=== PATIENT | male | born 1965 | race African-American/Black ===

== ENCOUNTER 2019-03-03 14:43 | Inpatient (IN) | payer OTHER ==
[2019-03-03] MEDS: LATANOPROST 0.005% OPHTH SOLN 2.5ML BOTTLE OU SCH ×2 (10:40→22:27)
[2019-03-03 15:12] VITALS: BMI 28.0
--- NOTE | 2019-03-03 16:18 | HP ---
CIWA Score Nausea/Vomitin-No Nausea/No Vomiting Muscle Tremors: 4-Moderate,w/Arms Extend Anxiety: 3 Agitation: 3 Paroxysmal Sweats: 3 (Increased facial moisture) Orientation: 0-Oriented Tacttile Disturbances: 0-None Auditory Disturbances: 0-None Visual Disturbances: 0-None Headache: 0-None Present (FREDRICK: 0.024) CIWA-Ar Total Score: 13 - Admission Criteria OASAS Guidelines: Admission for Medically Managed Detox: Requires at least one of the followin. CIWA greater than 12 2. Seizures within the past 24 hours 3. Delirium tremens within the past 24 hours 4. Hallucinations within the past 24 hours 5. Acute intervention needed for co occurring medical disorder 6. Acute intervention needed for co occurring psychiatric disorder 7. Severe withdrawal that cannot be handled at a lower level of care (continued vomiting, continued diarrhea, abnormal vital signs) requiring intravenous medication and/or fluids 8. Patient presents the following: CIWA greater than 12 Admission Criteria Met: Admission criteria met Admitting History and Physical - Smoking History Smoking history: Never smoked Have you smoked in the past 12 months: No If you are a former smoker, when did you quit?: 11/19 - Alcohol/Substance Use Hx Alcohol Use: Yes Admission ROS [facility] Chief Complaint: "Here to regain custody over my life. To stop using alcohol and cocaine" Allergies/Adverse Reactions: Allergies Allergy/AdvReac Type Severity Reaction Status Date / Time No Known Allergies Allergy Verified 03/03/19 15:01 History of Present Illness: 53 yo presents w/ alcohol withdrawal symptoms seeking detox. UTox: + ALEKSANDER FREDRICK: 0.0 Denies hx seizures, blackouts or overdoses. Hx falls r/t intoxication. Last fall 6 months ago. Alcohol use began at age 21. Currently drinks 12 - 12 oz beers and 1/2 liter (1 pt)/day. Has been drinking current amount x past 2 years. Last drink @ 12 mn. Crack/cocaine use began at age 38. Currently smokes $50 3-4x/wk. Nicotine use began 30 days ago. Just has "3-4 pulls" PMHx: PPD+; Glaucoma. MHHx: No past MH diagnosis. States was prescribed Xanax for anxiety issue. Denies thoughts of harming self or others. SHx:Domiciled. Employed. Denies legal issues. 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 Last alprazolam prescription states 02/26/19: 30 day # 90- but patient states didn't cloth picker and is no longer taking. Last oxycodone prescription was 01/18/19: 30 day #90 See printout. Exam Limitations: No Limitations - Ebola screening Have you traveled outside of the country in the last 21 days: No (N) Have you had contact with anyone from an Ebola affected area: No Have you been sick,other than usual withdrawal symptoms: No Do you have a fever: No - Review of Systems Constitutional: Diaphoresis, Changes in sleep (DFifficulty falling and staying asleep) EENT: reports: Dental Problems (Dentures), Other (Glaucoma - on eye gtts) Respiratory: reports: No Symptoms reported Cardiac: reports: No Symptoms Reported GI: reports: Indigestion (Heart burn - was taking prilosec) : reports: No Symptoms Reported Musculoskeletal: reports: Joint Pain ((R) wrist injury 6 months ago.) Integumentary: reports: No Symptoms Reported Neuro: reports: Tremors Endocrine: reports: Increased Thirst Hematology: reports: No Symptoms Reported Psychiatric: reports: Orientated x3, Anxious Patient History - Patient Medical History Hx Anemia: No Hx Asthma: No Hx Chronic Obstructive Pulmonary Disease (COPD): No Hx Cancer: No Hx Cardiac Disorders: No Hx Congestive Heart Failure: No Hx Hypertension: No Hx Hypercholesterolemia: No Hx Pacemaker: No HX Cerebrovascular Accident: No Hx Seizures: No Hx Diabetes: No Hx Gastrointestinal Disorders: No Hx Liver Disease: No Hx Genitourinary Disorders: No Hx Sexually Transmitted Disorders: No Hx Renal Disease (ESRD): No Hx Thyroid Disease: No Hx Human Immunodeficiency Virus (HIV): No Hx Depression: Yes (no med) Hx Suicide Attempt: No Hx Schizophrenia: No - Patient Surgical History Past Surgical History: Yes Hx Appendectomy: Yes (at age of 75 years old) Other Surgical History: s/p surgery for gswof right thigh - PPD History Previous Implant?: No (Hx PPD+ as a child. States rx'd w/ [facility]H and B-6) Documented Results: Positive w/o proof Implanted On Prior [facility] Admission?: No PPD to be Administered?: No - Smoking Cessation Smoking history: Current some day smoker Have you smoked in the past 12 months: Yes Aproximately how many cigarettes per day: 0.5 Hx Chewing Tobacco Use: No Initiated information on smoking cessation: Yes 'Breaking Loose' booklet given: 03/03/19 - Substance & Tx. History Hx Alcohol Use: Yes Hx Substance Use: Yes Substance Use Type: Alcohol, Cocaine Hx Substance Use Treatment: Yes (detox, rehab) - Substances abused Alcohol Substance route: Oral Frequency: Daily Amount used: 1/5th of gin 6(12oz beers) Age of first use: 21 Date of last use: 03/03/19 Crack Substance route: Smoking Frequency: 3-6 times per week Amount used: 50$/day Age of first use: 38 Date of last use: 03/03/19 Cocaine Substance route: Smoking Frequency: 3-6 times per week Amount used: $50/day Age of first use: 38 Date of last use: 03/03/19 Admission Physical Exam [facility] - Vital Signs Vital Signs: Vital Signs - 24 hr 03/03/19 15:01 Temperature 98.4 F Pulse Rate 68 Respiratory 14 Rate - Physical General Appearance: Yes: Nourished, Mild Distress, Tremorous, Sweating ( Increased facial moisture), Anxious HEENTM: Yes: EOMI, Hearing grossly Normal, Normocephalic, REINA, Pharynx Normal Respiratory: Yes: Lungs Clear (PULSE OX = 98 %), Normal Breath Sounds, No Respiratory Distress Neck: Yes: No masses,lesions,Nodules, Supple Breast: Yes: Breast Exam Deferred Cardiology: Yes: Regular Rhythm, Regular Rate, S1, S2 Abdominal: Yes: Non Tender, Flat, Soft, Increased Bowel Sounds Genitourinary: Yes: Within Normal Limits Back: Yes: Within Normal Limits Musculoskeletal: Yes: full range of Motion, Gait Steady Extremities: Yes: Normal Capillary Refill (PERIPHERAL PULSES +), Tremors Neurological: Yes: computer programmer II-XII NML intact, Fully Oriented, Alert, Motor Strength 5/5 Integumentary: Yes: Normal Color, Warm, Diaphoresis (Increased facial moisture) Lymphatic: Yes: Within Normal Limits - Diagnostic (1) Alcohol dependence with withdrawal, uncomplicated Current Visit: Yes Status: Acute (2) Glaucoma Current Visit: Yes Status: Chronic Qualifiers: Glaucoma type: unspecified Laterality: bilateral Qualified Code(s): H40.9 - Unspecified glaucoma (3) Nicotine abuse Current Visit: Yes Status: Acute (4) Acid reflux Current Visit: Yes Status: Chronic Qualifiers: Esophagitis presence: without esophagitis Qualified Code(s): K21.9 - Gastro -esophageal reflux disease without esophagitis (5) Cocaine dependence Current Visit: Yes Status: Chronic (6) History of positive PPD Current Visit: Yes Status: Chronic Cleared for Admission [facility] - Detox or Rehab S Level of Care: Medically Managed Detox Regimen/Protocol: Valium (ATIVAN ) Claeared for Rehab Admission: No Breathalyzer - Breathalyzer Breathalyzer: 0.024 Urine Drug Screen - Test Device Lot number: [id number] Expiration date: 10/18/20 - Control Is test valid?: Yes - Results Drug screen NEGATIVE: No Urine drug screen results: ALEKSANDER-Cocaine Inpatient Rehab Admission - Rehab Decision to Admit Inpatient rehab admission?: No
[2019-03-03] MEDS ORDERED: MAGNESIUM HYDROX 2400MG/30ML ORAL SUSPENSION 30 ML CUP PO PRN (16:45)
[2019-03-03] MEDS ORDERED: MAGNESIUM CITRATE 300 ML BOTTLE PO PRN (16:45)
[2019-03-03] MEDS ORDERED: ACETAMINOPHEN 325 MG TABLET (FP) PO PRN ×2 (16:45)
[2019-03-03] MEDS ORDERED: MENTHOL/PHENOL 1 EACH UD MM PRN (16:45)
[2019-03-03] MEDS ORDERED: MAG HYDROX/AL HYDROX/SIMETH 30 ML UNIT-DOSE CUP PO PRN (16:45)
[2019-03-03] MEDS ORDERED: NICOTINE POLACRILEX 2 MG GUM BUC PRN (16:45)
[2019-03-03] MEDS ORDERED: IBUPROFEN 400 MG TABLET (FP) PO PRN (16:45)
[2019-03-03] MEDS ORDERED: BISMUTH SUBSALICYLATE 524 MG/30 ML UD PO PRN (16:45)
[2019-03-03] MEDS: LORazepam 1 MG TABLET PO PRN (17:58)
[2019-03-03] MEDS ORDERED: PATIENT'S OWN MEDICATION (NON-FORMULARY) (Dorzolamide Hcl/Timolol Maleat [Cosopt Eye Drops OU SCH (22:00)
[2019-03-03] MEDS: THIAMINE HCL 100 MG TABLET (FP) PO SCH (22:24)
[2019-03-03] MEDS: MELATONIN 5 MG TABLETS PO PRN (22:24)
[2019-03-03] MEDS: PANTOPRAZOLE 20 MG TABLET PO SCH (22:24)
[2019-03-03] MEDS: LORazepam 2 MG TABLET PO SCH (22:24)
[2019-03-04] MEDS: LORazepam 2 MG TABLET PO SCH ×4 (06:59→22:28)
[2019-03-04] MEDS ORDERED: PNEUMOC 13-VAL CONJ-DIP CRM/PF 0.5 ML DISP.SYRIN IM ONE (10:00)
--- NOTE | 2019-03-04 10:15 | EKG ---
Test Reason : Blood Pressure : / mmHG Vent. Rate : 065 BPM Atrial Rate : 065 BPM P-R Int : 148 ms QRS Dur : 074 ms QT Int : 372 ms P-R-T Axes : 048 -22 015 degrees QTc Int : 386 ms NORMAL SINUS RHYTHM NORMAL ECG NO PREVIOUS ECGS AVAILABLE Confirmed by NICOLE HEREDIA MD ([id number]) on 03/04/2019 10:15:23 AM Referred By: Delbert Hernández Confirmed By:NICLOE HEREDIA MD
[2019-03-04] MEDS: PRENATAL VITAMINS W/ FOLIC ACID TABLET (FP) PO SCH (10:32)
[2019-03-04] MEDS: PANTOPRAZOLE 20 MG TABLET PO SCH ×2 (10:32→22:28)
[2019-03-04] MEDS ORDERED: hydrOXYzine PAMOATE 50 MG CAPSULE (FP) PO PRN (10:45)
[2019-03-04 11:05] LABS: HEMATOCRIT 45.9 % (35.4-49); HEMOGLOBIN 14.7 GM/dL (11.7-16.9); MCH 29.7 pg (25.7-33.7); MCHC 32.1 g/dl (32.0-35.9); MEAN CELL VOLUME 92.7 fl (80-96); MEAN PLT VOLUME 9.8 fl (7.5-11.1); PLATELET COUNT 223 K/MM3 (134-434); RBC 4.96 M/mm3 (4.00-5.60); RDW 13.1 % (11.9-15.9); WHITE BLOOD COUNT 7.1 K/mm3 (4.0-10.0)
[2019-03-04 11:13] LABS: ALBUMIN 3.9 g/dl (3.4-5.0); BILIRUBIN,TOTAL 0.6 mg/dL (0.2-1); BLOOD UREA NITROGEN 11.9 mg/dL (7-18); CREATININE 1.4 mg/dL (0.55-1.3); POTASSIUM 3.9 mmol/L (3.5-5.1); TOT PROT 7.4 g/dl (6.4-8.2)
[2019-03-04 11:23] LABS: URINE APPEARANCE CLEAR; URINE BILIRUBIN NEGATIVE (NEGATIVE); URINE COLOR YELLOW; URINE GLUCOSE (UA) NEGATIVE (NEGATIVE); URINE KETONE NEGATIVE (NEGATIVE); URINE LEUK ESTERASE NEGATIVE (NEGATIVE); URINE NITRITE NEGATIVE (NEGATIVE); URINE PROTEIN NEGATIVE (NEGATIVE); URINE UROBILINOGEN 0.2 mg/dL (0.2-1.0)
--- NOTE | 2019-03-04 12:32 | PN ---
[facility] CIWA - CIWA Score Nausea/Vomitin-Mild Nausea/No Vomiting Muscle Tremors: 2 Anxiety: 2 Agitation: 2 Paroxysmal Sweats: 2 Orientation: 0-Oriented Tacttile Disturbances: 0-None Auditory Disturbances: 0-None Visual Disturbances: 0-None Headache: 0-None Present CIWA-Ar Total Score: 9 S Progress Note (SOAP) Subjective: Sweat, chills, tremor, interrupted sleep Objective: 03/04/19 12:29 Last Vital Signs Temp Pulse Resp BP Pulse Ox 97.7 F 73 18 126/70 03/04/19 09:17 03/04/19 09:17 03/04/19 09:17 03/04/19 09:17 Laboratory Tests 03/04/19 03/04/19 03/04/19 08:00 08:00 08:20 WBC 7.1 RBC 4.96 Hgb 14.7 Hct 45.9 MCV 92.7 MCH 29.7 MCHC 32.1 RDW 13.1 Plt Count 223 MPV 9.8 Sodium 139 Potassium 3.9 Chloride 105 Carbon Dioxide 27 Anion Gap 8 BUN 11.9 Creatinine 1.4 H Est GFR (CKD-EPI)AfAm 65.09 Est GFR (CKD-EPI)NonAf 56.16 Random Glucose 88 Calcium 9.0 Total Bilirubin 0.6 AST 31 ALT 50 Alkaline Phosphatase 110 Total Protein 7.4 Albumin 3.9 Urine Color Yellow Urine Appearance Clear Urine pH 5.0 Ur Specific [place] 1.024 Urine Protein Negative Urine Glucose (UA) Negative Urine Ketones Negative Urine Blood Negative Urine Nitrite Negative Urine Bilirubin Negative Urine Urobilinogen 0.2 Ur Leukocyte Esterase Negative Labs reviewed: serum creatinine 1.4 (mildly elevated) Assessment: 03/04/19 12:30 Withdrawal sxs Prerenal azotemia noted Plan: Continue detox Encouraged PO water intake Vistaril prn ordered for w/d sxs as per patient's request Prerenal azotemia: encouraged to drink more water, repeat BMP
[2019-03-04] MEDS ORDERED: FLU VACCINE QUAD 60 MCG/0.5 ML (MDV 19-20) IM ONE (13:00)
[2019-03-04] MEDS: THIAMINE HCL 100 MG TABLET (FP) PO SCH (22:28)
[2019-03-04] MEDS: MELATONIN 5 MG TABLETS PO PRN (22:29)
[2019-03-04] MEDS: TIMOLOL 0.5% OPHTHALMIC SOL 5 ML BOTTLE OU SCH (23:04)
[2019-03-04] MEDS: LATANOPROST 0.005% OPHTH SOLN 2.5ML BOTTLE OU SCH (23:04)
[2019-03-04] MEDS: DORZOLAMIDE 2% HCL OPHTHALMIC SOLUTION 10 ML BOTTLE OU SCH (23:05)
[2019-03-05] MEDS: LORazepam 1 MG TABLET PO SCH ×4 (05:18→22:05)
--- NOTE | 2019-03-05 09:34 | PN ---
S CIWA - CIWA Score Nausea/Vomitin-Mild Nausea/No Vomiting Muscle Tremors: 1-None Visible, but Jack Anxiety: 2 Agitation: 2 Paroxysmal Sweats: No Perspiration Orientation: 0-Oriented Tacttile Disturbances: 1-Very Mild Itch/Numbness Auditory Disturbances: 0-None Visual Disturbances: 0-None Headache: 1-Very Mild CIWA-Ar Total Score: 8 [facility] Progress Note (SOAP) Subjective: alert,irritable,anxious,interrupted sleep,pain in the body, Objective: 03/05/19 09:32 Vital Signs Temperature 97.5 F L 03/05/19 09:21 Pulse Rate 66 03/05/19 09:21 Respiratory Rate 18 03/05/19 09:21 Blood Pressure 106/68 03/05/19 09:21 O2 Sat by Pulse Oximetry (%) repeat bmp pending Assessment: 03/05/19 09:33 withdrawal symptom Plan: continue detox ativan regimen,encourage oral fluid
[2019-03-05] MEDS: TIMOLOL 0.5% OPHTHALMIC SOL 5 ML BOTTLE OU SCH (10:17)
[2019-03-05] MEDS: DORZOLAMIDE 2% HCL OPHTHALMIC SOLUTION 10 ML BOTTLE OU SCH ×3 (10:18→22:06)
[2019-03-05] MEDS: PANTOPRAZOLE 20 MG TABLET PO SCH ×2 (10:20→22:05)
[2019-03-05] MEDS: PRENATAL VITAMINS W/ FOLIC ACID TABLET (FP) PO SCH (10:20)
[2019-03-05] MEDS ORDERED: PNEUMOCOCCAL 23 VACCINE 0.5 ML VIAL IM ONE (12:00)
[2019-03-05 12:49] LABS: CALCIUM 9.3 mg/dL (8.5-10.1); CREATININE 1.2 mg/dL (0.55-1.3); POTASSIUM 4.1 mmol/L (3.5-5.1)
[2019-03-05] MEDS: LORazepam 1 MG TABLET PO PRN ×2 (14:21→19:50)
[2019-03-05] MEDS: TIMOLOL 0.25% OPHTHALMIC SOL 5 ML BOTTLE OU SCH ×2 (15:16→22:06)
[2019-03-05] MEDS: THIAMINE HCL 100 MG TABLET (FP) PO SCH (22:05)
[2019-03-05] MEDS: LATANOPROST 0.005% OPHTH SOLN 2.5ML BOTTLE OU SCH (22:07)
[2019-03-06] MEDS ORDERED: LORazepam 0.5 MG TABLET PO PRN
[2019-03-06] MEDS: LORazepam 0.5 MG TABLET PO SCH ×4 (05:28→22:48)
[2019-03-06] MEDS: DORZOLAMIDE 2% HCL OPHTHALMIC SOLUTION 10 ML BOTTLE OU SCH ×3 (05:43→21:44)
[2019-03-06] MEDS: TIMOLOL 0.25% OPHTHALMIC SOL 5 ML BOTTLE OU SCH ×3 (05:44→21:43)
--- NOTE | 2019-03-06 09:41 | PN ---
S CIWA - CIWA Score Nausea/Vomitin-Mild Nausea/No Vomiting Muscle Tremors: 1-None Visible, but [place] Anxiety: 2 Agitation: 2 Paroxysmal Sweats: No Perspiration Orientation: 0-Oriented Tacttile Disturbances: 1-Very Mild Itch/Numbness Auditory Disturbances: 0-None Visual Disturbances: 0-None Headache: 1-Very Mild CIWA-Ar Total Score: 8 [facility] Progress Note (SOAP) Subjective: alert,irritable,anxious,interrupted sleep, Objective: 03/06/19 09:40 Vital Signs Temperature 97.6 F 03/06/19 09:21 Pulse Rate 68 03/06/19 09:21 Respiratory Rate 18 03/06/19 09:21 Blood Pressure 134/65 03/06/19 09:21 O2 Sat by Pulse Oximetry (%) Assessment: 03/06/19 09:40 withdrawal symptom Plan: continue detox ativan regimen,psychiatric evaluation for anxiety,depression and insomnia,discharge in am
[2019-03-06] MEDS: PANTOPRAZOLE 20 MG TABLET PO SCH ×2 (10:16→21:40)
[2019-03-06] MEDS: PRENATAL VITAMINS W/ FOLIC ACID TABLET (FP) PO SCH (10:16)
--- NOTE | 2019-03-06 15:14 | CONSULT ---
[facility] Psychiatric Consult - Data Date of interview: 03/06/19 Admission source: [facility] Identifying data: Readmission to [facility] for this 53 y/o AA male self- referred for detoxification. CARSON issues : alcohol, cocaine. Interviewed at [address] [place] [address]. Patient is , father of three, domiciled and currently employed. Substance Abuse History: Discussed with patient. Details in current [facility] report as follows : Smoking history: Current some day smoker. Have you smoked in the past 12 months: Yes. Aproximately how many cigarettes per day: 0.5. Hx Chewing Tobacco Use: No. Initiated information on smoking cessation: Yes. ' Breaking Loose' booklet given: 03/03/19. - Substance & Tx. History. Hx Alcohol Use: Yes. Hx Substance Use: Yes. Substance Use Type: Alcohol, Cocaine. Hx Substance Use Treatment: Yes (detox, rehab). - Substances abused. Alcohol. Substance route: Oral. Frequency: Daily. Amount used: 1/5th of gin 6(12oz beers). Age of first use: 21. Date of last use: 03/03/19. Crack. Substance route: Smoking. Frequency: 3-6 times per week. Amount used: 50$/day. Age of first use: 38. Date of last use: 03/03/19. Cocaine. Substance route: Smoking. Frequency: 3-6 times per week. Amount used: $50/ day. Age of first use: 38. Date of last use: 03/03/19 Medical History: Patient endorses good general health. Noted history of positive PPD. Psychiatric History: Patient denies history of psychiatric hospitalizations, OPD care or suicide attempts. Physical/Sexual Abuse/Trauma History: Patient denies. Additional Comment: Urine drug screen results: ALEKSANDER-Cocaine. Noted. Mental Status Exam - Mental Status Exam Alert and Oriented to: Time, Place, Person Cognitive Function: Good Patient Appearance: Well Groomed Mood: Hopeful, Euthymic Affect: Appropriate, Normal Range Patient Behavior: Appropriate, Cooperative Speech Pattern: Clear Voice Loudness: Normal Thought Process: Intact, Goal Oriented Thought Disorder: Not Present Hallucinations: Denies Suicidal Ideation: Denies Homicidal Ideation: Denies Insight/Judgement: Poor Sleep: Poorly, Difficulty falling asleep Appetite: Good Muscle strength/Tone: Normal Gait/Station: Normal Psychiatric Findings - Problem List ([place] 1, 2,3) (1) Alcohol dependence with withdrawal, uncomplicated Current Visit: Yes Status: Acute (2) Cocaine dependence Current Visit: Yes Status: Chronic (3) Insomnia Current Visit: Yes Status: Acute - Initial Treatment Plan Initial Treatment Plan: Psychoeducation. Sleep hygiene. Detoxification. Seroquel 50 mg po hs (off-label utilization for management of insomnia). Patient is made aware of side effects/benefits + off-label use. Mr Del Rosario is in agreement with this plan of care. Observation.
[2019-03-06] MEDS: THIAMINE HCL 100 MG TABLET (FP) PO SCH (21:41)
[2019-03-06] MEDS ORDERED: QUEtiapine FUMARATE 50 MG TABLET PO SCH (22:00)
[2019-03-06] MEDS ORDERED: QUEtiapine FUMARATE 100 MG TABLET (FP) PO SCH (22:00)
[2019-03-07] MEDS ORDERED: LORazepam 0.5 MG TABLET PO ONE (05:00)
[2019-03-07] MEDS: DORZOLAMIDE 2% HCL OPHTHALMIC SOLUTION 10 ML BOTTLE OU SCH (06:06)
[2019-03-07] MEDS: TIMOLOL 0.25% OPHTHALMIC SOL 5 ML BOTTLE OU SCH (06:07)
[2019-03-07 06:10] VITALS: TEMP 97.9
--- NOTE | 2019-03-07 08:48 | DS ---
[facility] Detox Discharge Summary Admission Date: 03/03/19 Discharge Date: 03/07/19 - History Present History: Alcohol Dependence, Cocaine Dependence - Physical Exam Results Vital Signs: Vital Signs Temperature 97.9 F 03/07/19 05:00 Pulse Rate 66 03/07/19 05:00 Respiratory Rate 20 03/07/19 05:00 Blood Pressure 104/54 L 03/07/19 05:00 O2 Sat by Pulse Oximetry (%) Pertinent Admission Physical Exam Findings: Vital Signs Temperature 97.9 F 03/07/19 05:00 Pulse Rate 66 03/07/19 05:00 Respiratory Rate 20 03/07/19 05:00 Blood Pressure 104/54 L 03/07/19 05:00 O2 Sat by Pulse Oximetry (%) Laboratory Tests 03/04/19 03/04/19 03/04/19 08:00 08:00 08:00 WBC 7.1 RBC 4.96 Hgb 14.7 Hct 45.9 MCV 92.7 MCH 29.7 MCHC 32.1 RDW 13.1 Plt Count 223 MPV 9.8 Sodium 139 Potassium 3.9 Chloride 105 Carbon Dioxide 27 Anion Gap 8 BUN 11.9 Creatinine 1.4 H Est GFR (CKD-EPI)AfAm 65.09 Est GFR (CKD-EPI)NonAf 56.16 Random Glucose 88 Calcium 9.0 Total Bilirubin 0.6 AST 31 ALT 50 Alkaline Phosphatase 110 Total Protein 7.4 Albumin 3.9 Urine Color Urine Appearance Urine pH Ur Specific [place] Urine Protein Urine Glucose (UA) Urine Ketones Urine Blood Urine Nitrite Urine Bilirubin Urine Urobilinogen Ur Leukocyte Esterase RPR Titer Nonreactive HIV 1&2 Antibody Screen HIV P24 Antigen 03/04/19 03/04/19 03/05/19 08:00 08:20 08:25 WBC RBC Hgb Hct MCV MCH MCHC RDW Plt Count MPV Sodium 139 Potassium 4.1 Chloride 106 Carbon Dioxide 26 Anion Gap 6 L BUN 16.0 Creatinine 1.2 Est GFR (CKD-EPI)AfAm 78.43 Est GFR (CKD-EPI)NonAf 67.67 Random Glucose 109 H Calcium 9.3 Total Bilirubin AST ALT Alkaline Phosphatase Total Protein Albumin Urine Color Yellow Urine Appearance Clear Urine pH 5.0 Ur Specific [place] 1.024 Urine Protein Negative Urine Glucose (UA) Negative Urine Ketones Negative Urine Blood Negative Urine Nitrite Negative Urine Bilirubin Negative Urine Urobilinogen 0.2 Ur Leukocyte Esterase Negative RPR Titer HIV 1&2 Antibody Screen Negative HIV P24 Antigen Negative aaox3 ambulating no acute distress - Treatment Hospital Course: Detox Protocol Followed, Detoxed Safely, Responded well, Discharged Condition Good, Rehab Referral Accepted Patient has Accepted a Rehab Referral to: pt referred to inpatient - Medication Discharge Medications: Ambulatory Orders Cholecalciferol (Vitamin D3) [Vitamin D3 -] 2,000 unit PO DAILY 03/03/19 Dorzolamide HCl/Timolol Maleat [Cosopt Eye Drops] 1 drop OU TID 03/03/19 Latanoprost 0.005% Eye Drops [Xalatan 0.005% Eye Drops -] 1 drop OU HS 03/03/19 - Diagnosis (1) Alcohol dependence with withdrawal, uncomplicated Current Visit: Yes Status: Acute (2) Insomnia Current Visit: Yes Status: Acute (3) Nicotine abuse Current Visit: Yes Status: Acute (4) Acid reflux Current Visit: Yes Status: Chronic Qualifiers: Esophagitis presence: without esophagitis Qualified Code(s): K21.9 - Gastro -esophageal reflux disease without esophagitis (5) Cocaine dependence Current Visit: Yes Status: Chronic (6) Glaucoma Current Visit: Yes Status: Chronic Qualifiers: Glaucoma type: unspecified Laterality: bilateral Qualified Code(s): H40.9 - Unspecified glaucoma (7) History of positive PPD Current Visit: Yes Status: Chronic (8) Seizure Current Visit: No Status: Active (9) Syncope Current Visit: No Status: Active (10) Weight decreased Current Visit: No Status: Active (11) depression Current Visit: No Status: Active - AMA Did Patient Leave Against Medical Advice: No
[2019-03-07 09:52] VITALS: BP 122/75; PULSE 78
[2019-03-07] MEDS: PRENATAL VITAMINS W/ FOLIC ACID TABLET (FP) PO SCH (10:24)
[2019-03-07] MEDS: PANTOPRAZOLE 20 MG TABLET PO SCH (10:25)
== END 2019-03-07 12:15 | disposition other institution (70) | DRG 774 ==
LOC: YASAS 14:43 → Y6N 16:18
PROVIDERS: ADMIT Allergy & Immunology; ATTEND Allergy & Immunology
PROC: HZ2ZZZZ Detoxification Services for Substance Abuse Treatment (ICD-10-PCS; principal; 2019-03-03)
DX: F10.230 Alcohol dependence with withdrawal, uncomplicated (principal); F14.20 Cocaine dependence, uncomplicated; F17.210 Nicotine dependence, cigarettes, uncomplicated; F32.9 Major depressive disorder, single episode, unspecified; G47.00 Insomnia, unspecified; K21.9 Gastro-esophageal reflux disease without esophagitis; H40.9 Unspecified glaucoma; R76.11 Nonspecific reaction to tuberculin skin test without active tuberculosis; R63.4 Abnormal weight loss; R79.89 Other specified abnormal findings of blood chemistry; Z86.69 Personal history of other diseases of the nervous system and sense organs
CPT/HCPCS: 36415; 71046-TC-FY; 80048; 80053; 81003; 85027; 86593; 87389; 90732; 93005; 93010; G0008; G0009; Q2036

== ENCOUNTER 2019-03-07 12:22 | Inpatient (IN) | payer OTHER ==
[2019-03-07] MEDS ORDERED: guaiFENesin 200 MG/10 ML 10 ML UNIT-DOSE CUPS PO PRN (14:44)
[2019-03-07] MEDS ORDERED: LOPERAMIDE HCL 2 MG CAPSULE PO PRN (14:44)
[2019-03-07] MEDS ORDERED: MAGNESIUM HYDROX 2400MG/30ML ORAL SUSPENSION 30 ML CUP PO PRN (14:44)
[2019-03-07] MEDS ORDERED: hydrOXYzine PAMOATE 25 MG CAPSULE (FP) PO PRN (14:44)
[2019-03-07] MEDS ORDERED: ACETAMINOPHEN 325 MG TABLET (FP) PO PRN (14:44)
[2019-03-07] MEDS ORDERED: MENTHOL/PHENOL 1 EACH UD MM PRN (14:44)
[2019-03-07] MEDS ORDERED: MAGNESIUM CITRATE 300 ML BOTTLE PO PRN (14:44)
[2019-03-07] MEDS ORDERED: P-EPHED 60MG/TRIPROLIDI 2.5MG TABLET PO PRN (14:44)
--- NOTE | 2019-03-07 14:50 | PN ---
[facility] Progress Note Note: S:Patient admitted to [facility]. Labs, problem list, home medications reviewed. Previous admission reviewed-uneventful. One previous admission in 2012. O:General:No apparent distress HEENTM:Normocephalic, PERRLA Neck:Supple, Lungs:Clear Heart:S1 S2 ABD:+BS Neuro:CN 2-12 intact A/P: Admit to [facility] substance abuse rehab Maintain safety
[2019-03-07] MEDS: DORZOLAMIDE 2% HCL OPHTHALMIC SOLUTION 10 ML BOTTLE OU SCH (21:22)
[2019-03-07] MEDS: TIMOLOL 0.25% OPHTHALMIC SOL 5 ML BOTTLE OU SCH (21:22)
[2019-03-07] MEDS: THIAMINE HCL 100 MG TABLET (FP) PO SCH (21:22)
[2019-03-07] MEDS: LATANOPROST 0.005% OPHTH SOLN 2.5ML BOTTLE OU SCH (21:23)
[2019-03-07] MEDS: MELATONIN 5 MG TABLETS PO PRN (21:23)
[2019-03-07] MEDS ORDERED: TIMOLOL 0.25% OPHTHALMIC SOL 5 ML BOTTLE OU SCH (22:00)
[2019-03-08] MEDS: DORZOLAMIDE 2% HCL OPHTHALMIC SOLUTION 10 ML BOTTLE OU SCH ×3 (06:08→21:25)
[2019-03-08] MEDS: PRENATAL VITAMINS W/ FOLIC ACID TABLET (FP) PO SCH (10:16)
[2019-03-08] MEDS: CHOLECALCIFEROL (VIT D3) 1,000 UNIT (25 MCG) TABLET PO SCH (10:16)
[2019-03-08] MEDS: TIMOLOL 0.25% OPHTHALMIC SOL 5 ML BOTTLE OU SCH ×3 (10:20→21:25)
[2019-03-08] MEDS: MELATONIN 5 MG TABLETS PO PRN (21:24)
[2019-03-08] MEDS ORDERED: PT OWN MED DRAWER 7, Y5N ONE (21:24)
[2019-03-08] MEDS: QUEtiapine FUMARATE 50 MG TABLET PO SCH (21:24)
[2019-03-08] MEDS: THIAMINE HCL 100 MG TABLET (FP) PO SCH (21:24)
[2019-03-08] MEDS: LATANOPROST 0.005% OPHTH SOLN 2.5ML BOTTLE OU SCH (21:25)
[2019-03-09] MEDS: DORZOLAMIDE 2% HCL OPHTHALMIC SOLUTION 10 ML BOTTLE OU SCH ×3 (06:42→21:17)
[2019-03-09] MEDS: TIMOLOL 0.25% OPHTHALMIC SOL 5 ML BOTTLE OU SCH ×3 (06:42→21:17)
[2019-03-09] MEDS: CHOLECALCIFEROL (VIT D3) 1,000 UNIT (25 MCG) TABLET PO SCH (10:11)
[2019-03-09] MEDS: PRENATAL VITAMINS W/ FOLIC ACID TABLET (FP) PO SCH (10:11)
[2019-03-09] MEDS: THIAMINE HCL 100 MG TABLET (FP) PO SCH (21:16)
[2019-03-09] MEDS: MELATONIN 5 MG TABLETS PO PRN (21:16)
[2019-03-09] MEDS: QUEtiapine FUMARATE 50 MG TABLET PO SCH (21:16)
[2019-03-09] MEDS: LATANOPROST 0.005% OPHTH SOLN 2.5ML BOTTLE OU SCH (21:17)
[2019-03-10] MEDS: DORZOLAMIDE 2% HCL OPHTHALMIC SOLUTION 10 ML BOTTLE OU SCH ×3 (06:11→21:35)
[2019-03-10] MEDS: TIMOLOL 0.25% OPHTHALMIC SOL 5 ML BOTTLE OU SCH ×3 (06:12→21:35)
[2019-03-10] MEDS: PRENATAL VITAMINS W/ FOLIC ACID TABLET (FP) PO SCH (09:45)
[2019-03-10] MEDS: CHOLECALCIFEROL (VIT D3) 1,000 UNIT (25 MCG) TABLET PO SCH (09:45)
[2019-03-10] MEDS ORDERED: PT OWN MED DRAWER 7, Y5N ONE ×2 (14:19→19:12)
[2019-03-10] MEDS: THIAMINE HCL 100 MG TABLET (FP) PO SCH (21:36)
[2019-03-10] MEDS: QUEtiapine FUMARATE 50 MG TABLET PO SCH (21:36)
[2019-03-10] MEDS: LATANOPROST 0.005% OPHTH SOLN 2.5ML BOTTLE OU SCH (22:03)
[2019-03-11] MEDS: DORZOLAMIDE 2% HCL OPHTHALMIC SOLUTION 10 ML BOTTLE OU SCH ×3 (06:00→23:10)
[2019-03-11] MEDS: TIMOLOL 0.25% OPHTHALMIC SOL 5 ML BOTTLE OU SCH ×3 (06:01→23:09)
[2019-03-11] MEDS: CHOLECALCIFEROL (VIT D3) 1,000 UNIT (25 MCG) TABLET PO SCH (09:47)
[2019-03-11] MEDS: PRENATAL VITAMINS W/ FOLIC ACID TABLET (FP) PO SCH (09:47)
--- NOTE | 2019-03-11 16:39 | CONSULT ---
[facility] Psychiatric Consult - Data Date of interview: 03/11/19 Admission source: [facility] Identifying data: Patient is a 53 year old male, father of three, employed (school year nanny), and domiciled. This is one of multiple admissions for patient. Patient admitted to for alcohol and cocaine dependence. Substance Abuse History: Smoking Cessation. Smoking history: Current some day smoker. Have you smoked in the past 12 months: Yes. Aproximately how many cigarettes per day: 0.5. Hx Chewing Tobacco Use: No. Initiated information on smoking cessation: Yes. 'Breaking Loose' booklet given: 03/03/19. - Substance & Tx. History. Hx Alcohol Use: Yes. Hx Substance Use: Yes. Substance Use Type : Alcohol, Cocaine. Hx Substance Use Treatment: Yes (detox, rehab). - Substances abused. Alcohol. Substance route: Oral. Frequency: Daily. Amount used: 1/5th of gin 6(12oz beers). Age of first use: 21. Date of last use: 03/03/19. Crack. Substance route: Smoking. Frequency: 3-6 times per week. Amount used: 50$/day. Age of first use: 38. Date of last use: . Cocaine. Substance route: Smoking. Frequency: 3-6 times per week. Amount used: $50/day. Age of first use: 38. Date of last use: 03/03/19 Medical History: Patient endorses good general health. Noted history of positive PPD. Psychiatric History: Patient denies history of psychiatric hospitalizations, outpatient care, and suicide attempt. At present patient reports difficulty sleeping. Physical/Sexual Abuse/Trauma History: denies. Mental Status Exam - Mental Status Exam Alert and Oriented to: Time, Place, Person Cognitive Function: Good Patient Appearance: Well Groomed Mood: Euthymic Affect: Appropriate Patient Behavior: Appropriate, Cooperative Speech Pattern: Clear, Appropriate Voice Loudness: Normal Thought Process: Goal Oriented Thought Disorder: Not Present Hallucinations: Denies Suicidal Ideation: Denies Homicidal Ideation: Denies Insight/Judgement: Poor Sleep: Poorly Appetite: Fair Muscle strength/Tone: Normal Gait/Station: Normal Psychiatric Findings - Problem List ([place] 1, 2,3) (1) Alcohol use disorder Current Visit: Yes Status: Acute (2) Cocaine use disorder Current Visit: Yes Status: Acute (3) Insomnia Current Visit: Yes Status: Acute - Initial Treatment Plan Initial Treatment Plan: Psychoeducation provided. Rehab in progress. Will continue Seroquel 50mg for insomnia as per patient's request. Will order Belsomra 10mg PRN HS. Benefits and side effects discussed. Verbal consent given. Patient informed that a prescription of seroquel 50mg will not be given for insomnia. Patient in agreement with plan.
[2019-03-11] MEDS ORDERED: SUVOREXANT 10 MG TABLET PO PRN (22:00)
[2019-03-11] MEDS: THIAMINE HCL 100 MG TABLET (FP) PO SCH (23:06)
[2019-03-11] MEDS: QUEtiapine FUMARATE 50 MG TABLET PO SCH (23:08)
[2019-03-11] MEDS: LATANOPROST 0.005% OPHTH SOLN 2.5ML BOTTLE OU SCH (23:09)
[2019-03-12] MEDS: TIMOLOL 0.25% OPHTHALMIC SOL 5 ML BOTTLE OU SCH ×3 (06:00→21:39)
[2019-03-12] MEDS: DORZOLAMIDE 2% HCL OPHTHALMIC SOLUTION 10 ML BOTTLE OU SCH ×3 (06:00→21:39)
[2019-03-12] MEDS: CHOLECALCIFEROL (VIT D3) 1,000 UNIT (25 MCG) TABLET PO SCH (10:02)
[2019-03-12] MEDS: PRENATAL VITAMINS W/ FOLIC ACID TABLET (FP) PO SCH (10:02)
[2019-03-12] MEDS: PANTOPRAZOLE 40 MG TABLET (FP) PO SCH (15:31)
[2019-03-12] MEDS ORDERED: PT OWN MED DRAWER 7, Y5N ONE (19:24)
[2019-03-12] MEDS: QUEtiapine FUMARATE 50 MG TABLET PO SCH (21:10)
[2019-03-12] MEDS: THIAMINE HCL 100 MG TABLET (FP) PO SCH (21:10)
[2019-03-12] MEDS: MELATONIN 5 MG TABLETS PO PRN (21:10)
[2019-03-12] MEDS: LATANOPROST 0.005% OPHTH SOLN 2.5ML BOTTLE OU SCH (21:39)
[2019-03-12] MEDS: MAG HYDROX/AL HYDROX/SIMETH 30 ML UNIT-DOSE CUP PO PRN (21:51)
[2019-03-13] MEDS: DORZOLAMIDE 2% HCL OPHTHALMIC SOLUTION 10 ML BOTTLE OU SCH ×3 (05:45→21:13)
[2019-03-13] MEDS: TIMOLOL 0.25% OPHTHALMIC SOL 5 ML BOTTLE OU SCH ×3 (05:45→21:13)
[2019-03-13] MEDS: PRENATAL VITAMINS W/ FOLIC ACID TABLET (FP) PO SCH (10:07)
[2019-03-13] MEDS: CHOLECALCIFEROL (VIT D3) 1,000 UNIT (25 MCG) TABLET PO SCH (10:07)
[2019-03-13] MEDS: PANTOPRAZOLE 40 MG TABLET (FP) PO SCH (10:07)
[2019-03-13] MEDS: MAG HYDROX/AL HYDROX/SIMETH 30 ML UNIT-DOSE CUP PO PRN (15:51)
[2019-03-13] MEDS: LATANOPROST 0.005% OPHTH SOLN 2.5ML BOTTLE OU SCH (21:13)
[2019-03-13] MEDS: QUEtiapine FUMARATE 50 MG TABLET PO SCH (21:13)
[2019-03-13] MEDS: MELATONIN 5 MG TABLETS PO PRN (21:13)
[2019-03-13] MEDS: THIAMINE HCL 100 MG TABLET (FP) PO SCH (21:13)
[2019-03-14] MEDS: TIMOLOL 0.25% OPHTHALMIC SOL 5 ML BOTTLE OU SCH ×3 (06:18→21:01)
[2019-03-14] MEDS: DORZOLAMIDE 2% HCL OPHTHALMIC SOLUTION 10 ML BOTTLE OU SCH ×3 (06:19→21:01)
[2019-03-14] MEDS: CHOLECALCIFEROL (VIT D3) 1,000 UNIT (25 MCG) TABLET PO SCH (09:34)
[2019-03-14] MEDS: PANTOPRAZOLE 40 MG TABLET (FP) PO SCH (09:34)
[2019-03-14] MEDS: PRENATAL VITAMINS W/ FOLIC ACID TABLET (FP) PO SCH (09:34)
[2019-03-14] MEDS ORDERED: ALBUTEROL SO4 8 GM HFA INHALER IH PRN (10:53)
[2019-03-14] MEDS: IBUPROFEN 400 MG TABLET (FP) PO PRN (11:54)
[2019-03-14] MEDS: THIAMINE HCL 100 MG TABLET (FP) PO SCH (21:01)
[2019-03-14] MEDS: QUEtiapine FUMARATE 50 MG TABLET PO SCH (21:01)
[2019-03-14] MEDS: LATANOPROST 0.005% OPHTH SOLN 2.5ML BOTTLE OU SCH (21:02)
[2019-03-14] MEDS: SUVOREXANT 10 MG TABLET PO PRN (21:04)
[2019-03-14] MEDS ORDERED: SUVOREXANT 10 MG TABLET PO PRN (22:00)
[2019-03-15] MEDS: DORZOLAMIDE 2% HCL OPHTHALMIC SOLUTION 10 ML BOTTLE OU SCH ×3 (06:04→21:03)
[2019-03-15] MEDS: TIMOLOL 0.25% OPHTHALMIC SOL 5 ML BOTTLE OU SCH ×3 (06:04→21:03)
[2019-03-15] MEDS: PANTOPRAZOLE 40 MG TABLET (FP) PO SCH (09:44)
[2019-03-15] MEDS: CHOLECALCIFEROL (VIT D3) 1,000 UNIT (25 MCG) TABLET PO SCH (09:44)
[2019-03-15] MEDS: PRENATAL VITAMINS W/ FOLIC ACID TABLET (FP) PO SCH (09:45)
[2019-03-15] MEDS: MAG HYDROX/AL HYDROX/SIMETH 30 ML UNIT-DOSE CUP PO PRN (16:29)
--- NOTE | 2019-03-15 18:45 | PN ---
[facility] Progress Note Note: Patent states had sharp (L) chest pain earlier which began while resting in bed. States pain has resolved now. Patient was given maalox earlier. Patient ambulating and speaking calmly. No sweating. Heart rate RR. Lungs CTA. Pulse Ox = No pain w/ palpation of chest areas. Abd soft, NT. Last EKG: WNL. Repeat EKG wnl.
[2019-03-15] MEDS: QUEtiapine FUMARATE 50 MG TABLET PO SCH (21:02)
[2019-03-15] MEDS: LATANOPROST 0.005% OPHTH SOLN 2.5ML BOTTLE OU SCH (21:03)
[2019-03-15] MEDS: THIAMINE HCL 100 MG TABLET (FP) PO SCH (21:03)
[2019-03-15] MEDS: SUVOREXANT 10 MG TABLET PO PRN (21:05)
[2019-03-16] MEDS: TIMOLOL 0.25% OPHTHALMIC SOL 5 ML BOTTLE OU SCH ×3 (05:42→21:07)
[2019-03-16] MEDS: DORZOLAMIDE 2% HCL OPHTHALMIC SOLUTION 10 ML BOTTLE OU SCH ×3 (05:42→21:08)
[2019-03-16] MEDS: PRENATAL VITAMINS W/ FOLIC ACID TABLET (FP) PO SCH (10:11)
[2019-03-16] MEDS: PANTOPRAZOLE 40 MG TABLET (FP) PO SCH (10:12)
[2019-03-16] MEDS: CHOLECALCIFEROL (VIT D3) 1,000 UNIT (25 MCG) TABLET PO SCH (10:12)
--- NOTE | 2019-03-16 13:34 | EKG ---
Test Reason : Blood Pressure : / mmHG Vent. Rate : 065 BPM Atrial Rate : 065 BPM P-R Int : 172 ms QRS Dur : 082 ms QT Int : 372 ms P-R-T Axes : 072 002 019 degrees QTc Int : 386 ms NORMAL SINUS RHYTHM NORMAL ECG WHEN COMPARED WITH ECG OF 03-MAR-2019 18:16, NO SIGNIFICANT CHANGE WAS FOUND Confirmed by BRE MONGE MD ([id number]) on 03/16/2019 1:33:50 PM Referred By: Confirmed By:BRE MONGE MD
[2019-03-16] MEDS: IBUPROFEN 400 MG TABLET (FP) PO PRN (14:09)
[2019-03-16] MEDS: QUEtiapine FUMARATE 50 MG TABLET PO SCH (21:08)
[2019-03-16] MEDS: LATANOPROST 0.005% OPHTH SOLN 2.5ML BOTTLE OU SCH (21:08)
[2019-03-16] MEDS: THIAMINE HCL 100 MG TABLET (FP) PO SCH (21:08)
[2019-03-17] MEDS: DORZOLAMIDE 2% HCL OPHTHALMIC SOLUTION 10 ML BOTTLE OU SCH ×3 (06:27→21:17)
[2019-03-17] MEDS: TIMOLOL 0.25% OPHTHALMIC SOL 5 ML BOTTLE OU SCH ×3 (06:27→21:16)
[2019-03-17] MEDS: CHOLECALCIFEROL (VIT D3) 1,000 UNIT (25 MCG) TABLET PO SCH (09:22)
[2019-03-17] MEDS: PANTOPRAZOLE 40 MG TABLET (FP) PO SCH (09:22)
[2019-03-17] MEDS: PRENATAL VITAMINS W/ FOLIC ACID TABLET (FP) PO SCH (09:22)
[2019-03-17] MEDS: IBUPROFEN 400 MG TABLET (FP) PO PRN (09:23)
[2019-03-17] MEDS: QUEtiapine FUMARATE 50 MG TABLET PO SCH (21:16)
[2019-03-17] MEDS: THIAMINE HCL 100 MG TABLET (FP) PO SCH (21:16)
[2019-03-17] MEDS: LATANOPROST 0.005% OPHTH SOLN 2.5ML BOTTLE OU SCH (21:17)
[2019-03-17] MEDS ORDERED: SUVOREXANT 10 MG TABLET PO PRN (22:00)
[2019-03-18] MEDS: DORZOLAMIDE 2% HCL OPHTHALMIC SOLUTION 10 ML BOTTLE OU SCH ×3 (06:28→21:27)
[2019-03-18] MEDS: TIMOLOL 0.25% OPHTHALMIC SOL 5 ML BOTTLE OU SCH ×3 (06:28→21:27)
[2019-03-18] MEDS: CHOLECALCIFEROL (VIT D3) 1,000 UNIT (25 MCG) TABLET PO SCH (09:26)
[2019-03-18] MEDS: PANTOPRAZOLE 40 MG TABLET (FP) PO SCH (09:26)
[2019-03-18] MEDS: PRENATAL VITAMINS W/ FOLIC ACID TABLET (FP) PO SCH (09:26)
[2019-03-18] MEDS: LATANOPROST 0.005% OPHTH SOLN 2.5ML BOTTLE OU SCH (21:27)
[2019-03-18] MEDS: QUEtiapine FUMARATE 50 MG TABLET PO SCH (21:27)
[2019-03-18] MEDS: THIAMINE HCL 100 MG TABLET (FP) PO SCH (21:27)
[2019-03-19] MEDS: DORZOLAMIDE 2% HCL OPHTHALMIC SOLUTION 10 ML BOTTLE OU SCH ×3 (06:00→21:16)
[2019-03-19] MEDS: TIMOLOL 0.25% OPHTHALMIC SOL 5 ML BOTTLE OU SCH ×3 (06:02→21:16)
[2019-03-19] MEDS: CHOLECALCIFEROL (VIT D3) 1,000 UNIT (25 MCG) TABLET PO SCH (09:47)
[2019-03-19] MEDS: PRENATAL VITAMINS W/ FOLIC ACID TABLET (FP) PO SCH (09:47)
[2019-03-19] MEDS: PANTOPRAZOLE 40 MG TABLET (FP) PO SCH (09:47)
[2019-03-19 10:04] VITALS: PULSE 78
--- NOTE | 2019-03-19 11:48 | PN ---
S Progress Note Note: Psychiatric nurse practitioner note: Mr. Del Rosario is not interested in receiving a prescription for seroquel 50mg HS.
--- NOTE | 2019-03-19 12:48 | DS ---
[facility] Rehab Discharge Summary - [facility] Rehab Discharge Summary Admission Date: 03/07/19 Discharge Date: 03/19/19 - History Present History: Alcohol dependence, Cocaine dependence Pertinent Past History: 53 yo presents w/ alcohol use disorder. Denies hx seizures, blackouts or overdoses. Hx falls r/t intoxication. Last fall 6 months ago. Alcohol use began at age 21. Currently drinks 12 - 12 oz beers and 1/2 liter (1 pt)/day. Has been drinking current amount x past 2 years. Crack/cocaine use began at age 38. Currently smokes $50 3-4x/wk. Nicotine use began 30 days ago. Just has "3-4 pulls" PMHx: PPD+; Glaucoma. MHHx: No past MH diagnosis. States was prescribed Xanax for anxiety issue. Denies thoughts of harming self or others. SHx:Domiciled. Employed. Denies legal issues. BILINGUAL INTERPRETER: Patient w/ multiple months of prescriptions for alprazolam and oxycodone. 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 Last oxycodone prescription was 01/18/19: 30 day #90 - Discharge Physical Exam Vital Signs: Vital Signs Temperature 97.7 F 03/18/19 07:06 Pulse Rate 78 03/19/19 09:30 Respiratory Rate 18 03/19/19 09:30 Blood Pressure 122/66 03/19/19 09:30 O2 Sat by Pulse Oximetry (%) Pertinent Admission Physical Exam Findings: General Appearance: No apparent distress HEENTM: Normocephalic, Respiratory:Lungs Clear Neck: Supple Cardiology: S1, S2 Abdominal: + Bowel Sounds Musculoskeletal: full range of Motion, Gait Steady Neurological: veterinary medicine doctor II-XII NML intact - Treatment Discharge Condition: Outpatient referral accepted (Will attend 12 step program and [facility]. Medically stable for discharge. Patient) Hospital Course: patient attended groups, had 1:1 with his counselor, was seen by the psychiatric service. He was adherent to his medication regimen and treatment plan. He had no acute or urgent medical issues while in rehab. - Medication Discharge Medications: Ambulatory Orders Dorzolamide HCl/Timolol Maleat [Cosopt Eye Drops] 1 drop OU TID 03/03/19 Quetiapine Fumarate [Seroquel -] 100 mg PO HS 03/07/19 Cholecalciferol (Vitamin D3) [Vitamin D -] 2,000 unit PO DAILY #30 tab 03/19/19 Dorzolamide HCl [Trusopt 2% -] 1 drop OU TID 30 Days #1 bottle 03/19/19 Latanoprost 0.005% Eye Drops [Xalatan 0.005% Eye Drops -] 1 drop OU HS 30 Days # 1 bottle 03/19/19 Timolol 0.25% [Timoptic 0.25%] 1 drop OU TID #1 bottle 03/19/19 - Medication-Assisted Treatment (MAT) Medication-Assisted Treatment (MAT): No - Discharge Instructions Diet, activity, other medical instructions: Diet: as tolerated Activity: as tolerated Other medical instructions: Please follow up with aftercare plan and with PCP. - Follow-up Referral Minutes to complete discharge: 20 - AMA Did Patient Leave Against Medical Advice: No
[2019-03-19] MEDS: QUEtiapine FUMARATE 50 MG TABLET PO SCH (21:16)
[2019-03-19] MEDS: LATANOPROST 0.005% OPHTH SOLN 2.5ML BOTTLE OU SCH (21:16)
[2019-03-19] MEDS: THIAMINE HCL 100 MG TABLET (FP) PO SCH (21:16)
[2019-03-19] MEDS ORDERED: SUVOREXANT 10 MG TABLET PO PRN (22:00)
[2019-03-20] MEDS: TIMOLOL 0.25% OPHTHALMIC SOL 5 ML BOTTLE OU SCH (06:23)
[2019-03-20] MEDS: DORZOLAMIDE 2% HCL OPHTHALMIC SOLUTION 10 ML BOTTLE OU SCH (06:23)
[2019-03-20 06:54] VITALS: BP 117/73; TEMP 97.8
[2019-03-20] MEDS: CHOLECALCIFEROL (VIT D3) 1,000 UNIT (25 MCG) TABLET PO SCH (09:02)
[2019-03-20] MEDS: PRENATAL VITAMINS W/ FOLIC ACID TABLET (FP) PO SCH (09:02)
[2019-03-20] MEDS: PANTOPRAZOLE 40 MG TABLET (FP) PO SCH (09:02)
== END 2019-03-20 09:06 | disposition home or self-care (01) | DRG 772 ==
LOC: YASAS 12:22 → Y3W 12:27
PROVIDERS: ADMIT Neuromusculoskeletal Medicine & OMM; ATTEND Neuromusculoskeletal Medicine & OMM
PROC: HZ42ZZZ Group Counseling for Substance Abuse Treatment, Cognitive-Behavioral (ICD-10-PCS; principal; 2019-03-07)
DX: F10.20 Alcohol dependence, uncomplicated (principal); F14.20 Cocaine dependence, uncomplicated; F17.210 Nicotine dependence, cigarettes, uncomplicated; G47.00 Insomnia, unspecified; H40.9 Unspecified glaucoma; R76.11 Nonspecific reaction to tuberculin skin test without active tuberculosis
CPT/HCPCS: 93005; 93010

== ENCOUNTER 2020-01-22 13:08 | Inpatient (IN) | payer OTHER ==
--- OUTSIDE RECORDS SUMMARY | 2020-01-22 13:12 | XMS ---
:1965 Author Organization [facility] Support Name Relationship Address Phone UE Unavailable Unavailable Unavailable THERESE VALLADARES [address] [place] [id number], [place] [address] Re-disclosure Warning The records that you are about to access may contain information from federally- assisted alcohol or drug abuse programs. If such information is present, then the following federally mandated warning applies: This information has been disclosed to you from records protected by federal confidentiality rules (42 CFR part 2). The federal rules prohibit you from making any further disclosure of this information unless further disclosure is expressly permitted by the written consent of the person to whom it pertains or as otherwise permitted by 42 CFR part 2. A general authorization for the release of medical or other information is NOT sufficient for this purpose. The Federal rules restrict any use of the information to criminally investigate or prosecute any alcohol or drug abuse patient.The records that you are about to access may contain highly sensitive health information, the redisclosure of which is protected by Article 27-F of the [facility] Public Health law. If you continue you may haveaccess to information: Regarding HIV / AIDS; Provided by facilities licensed or operated by the [facility] Office of Mental Health; or Provided by the [facility] Office for People With Developmental Disabilities. If such information is present, then the following [facility] mandated warning applies: This information has been disclosed to you from confidential records which are protected by state law. State law prohibits you from making any further disclosure of this information without the specific written consent of the person to whom it pertains, or as otherwise permitted by law. Any unauthorized further disclosure in violation of state law may result in a fine or nursing home sentence or both. A general authorization for the release of medical or other information is NOT sufficient authorization for further disclosure. Insurance Providers Payer name Policy type Policy ID Covered Covered republican's Policy P jazmin / Coverage republican ID relationship to [place] [employer] orm[employer] type [facility] [id number] SP [id number] FIRST [employer] [id number] SP [id number] 300 HEALTH NON CAP ANKUSH [id number] SP [id number] 300 HEALTH NON CAP
--- NOTE | 2020-01-22 13:29 | BHS.RME ---
2019 N Coronavirus Screen - COVID-19 Screening Questions Dx of COVID-19 or had a positive test in the last 4 weeks?: No Contact with known/suspected COVID patient in last 14 days?: No Any of these symptoms or contact with someone who has?: None Traveled domestically/internationally in the last 14 days?: No Screen score: 0 Screen result: Further Evaluation Substance Use & Tx History - Substance Use History Alcohol Substance amount: 1/5 vodka + six pack beer Frequency of use: Daily Substance route: Oral Date of Last Use: 01/22/20 (started age 25) Cocaine- Powder Substance amount: $20-30 Frequency of use: Daily Substance route: Inhalation (ex: sniffing or snorting), Smoking Date of Last Use: 01/19/20 (started age 38) Nicotine Substance amount: Former smoker stopped over 1 year ago - Last Treatment Date of last treatment: 03/03-03/20/19 completed detox and rehab Treatment type: Substance Use Disorder ([facility]) Where was last treatment: Rehab Physical/Psych/Mental Status - Behavior General Behavior: Increased activity (restlessness, agitation) Eye Contact: Normal - Cooperativeness Cooperativeness: Cooperative - Thinking Thought Processes: Tight, Logical, Goal Directed - Physical Health Problems Is patient presently having any pain?: No Does patient presently have any injuries (include location): No Does patient currently have a fever: No Is patient : No CIWA Nausea/Vomitin Muscle Tremors: 4-Moderate,w/Arms Extend Anxiety: 4-Mod. Anxious/Guarded Agitation: 4-Moderately Restless Paroxysmal Sweats: 4-Forehead w/Sweat Beads Orientation: 0-Oriented Tacttile Disturbances: 2-Mild Itch/Numbness/Burn Auditory Disturbances: 0-None Visual Disturbances: 0-None Headache: 2-Mild CIWA-Ar Total Score: 22
[2020-01-22 13:41] VITALS: BMI 29.6
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
[2020-01-22] MEDS ORDERED: IBUPROFEN 400 MG TABLET (FP) PO PRN (14:15)
[2020-01-22] MEDS ORDERED: chlordiazePOXIDE HCL 25 MG CAPSULE PO PRN (14:15)
[2020-01-22] MEDS ORDERED: METHOCARBAMOL 500 MG TABLET PO PRN (14:15)
[2020-01-22] MEDS ORDERED: MAGNESIUM CITRATE 300 ML BOTTLE PO PRN (14:15)
[2020-01-22] MEDS ORDERED: MAGNESIUM HYDROX 2400MG/30ML ORAL SUSPENSION 30 ML CUP PO PRN (14:15)
[2020-01-22] MEDS ORDERED: MAG HYDROX/AL HYDROX/SIMETH 30 ML UNIT-DOSE CUP PO PRN (14:15)
[2020-01-22] MEDS ORDERED: MENTHOL/PHENOL 1 EACH UD MM PRN (14:15)
[2020-01-22] MEDS ORDERED: NICOTINE POLACRILEX 2 MG GUM BUC PRN (14:15)
[2020-01-22] MEDS ORDERED: BISMUTH SUBSALICYLATE 262 MG/15 ML BTL PO PRN (14:15)
[2020-01-22] MEDS ORDERED: ACETAMINOPHEN 325 MG TABLET (FP) PO PRN ×2 (14:15)
[2020-01-22] MEDS ORDERED: ONDANSETRON *ODT* 4 MG TABLET SL PRN (14:15)
[2020-01-22] MEDS: chlordiazePOXIDE HCL 25 MG CAPSULE PO SCH ×3 (14:56→22:20)
[2020-01-22 15:12] LABS: HEMATOCRIT 45.3 % (35.4-49); HEMOGLOBIN 14.4 GM/dL (11.7-16.9); MCH 28.8 pg (25.7-33.7); MCHC 31.8 g/dl (32.0-35.9); MEAN CELL VOLUME 90.4 fl (80-96); MEAN PLT VOLUME 9.5 fl (7.5-11.1); PLATELET COUNT 251 K/MM3 (134-434); RBC 5.01 M/mm3 (4.00-5.60)
[2020-01-22 15:16] LABS: POTASSIUM 3.7 mmol/L (3.5-5.1)
[2020-01-22 15:18] LABS: BLOOD UREA NITROGEN 8.5 mg/dL (7-18); CALCIUM 9.6 mg/dL (8.5-10.1)
[2020-01-22 15:19] LABS: ALBUMIN 3.9 g/dl (3.4-5.0)
[2020-01-22 15:22] LABS: CREATININE 1.3 mg/dL (0.55-1.3)
[2020-01-22 15:23] LABS: BILIRUBIN,TOTAL 0.7 mg/dL (0.2-1)
[2020-01-22 15:24] LABS: TOT PROT 8.1 g/dl (6.4-8.2)
[2020-01-22] MEDS: hydrOXYzine PAMOATE 25 MG CAPSULE (FP) PO SCH ×2 (17:16→22:20)
[2020-01-22] MEDS ORDERED: QUEtiapine FUMARATE 25 MG TABLET PO SCH (22:00)
[2020-01-22] MEDS ORDERED: TIMOLOL 0.25% OPHTHALMIC SOL 5 ML BOTTLE OU SCH (22:00)
[2020-01-22] MEDS ORDERED: MELATONIN 5 MG TABLETS PO SCH (22:00)
[2020-01-22] MEDS ORDERED: THIAMINE HCL 100 MG TABLET (FP) PO SCH (22:00)
[2020-01-22] MEDS ORDERED: LATANOPROST 0.005% OPHTH SOLN 2.5ML BOTTLE OU SCH (22:00)
[2020-01-22] MEDS: DORZOLAMIDE 2% HCL OPHTHALMIC SOLUTION 10 ML BOTTLE OU SCH (22:20)
[2020-01-22] MEDS: TIMOLOL 0.25% OPHTHALMIC SOL 5 ML BOTTLE OU SCH (22:24)
[2020-01-23] MEDS: hydrOXYzine PAMOATE 25 MG CAPSULE (FP) PO SCH ×2 (05:40→10:14)
[2020-01-23] MEDS: chlordiazePOXIDE HCL 25 MG CAPSULE PO SCH ×2 (05:40→10:15)
[2020-01-23] MEDS: DORZOLAMIDE 2% HCL OPHTHALMIC SOLUTION 10 ML BOTTLE OU SCH (05:41)
[2020-01-23 06:49] VITALS: TEMP 97.3
--- NOTE | 2020-01-23 08:10 | PN ---
Teaching Attending Note Name of Resident: Wendy Parker ATTENDING PHYSICIAN STATEMENT I saw and evaluated the patient. I reviewed the resident's note and discussed the case with the resident. I agree with the resident's findings and plan as documented. SUBJECTIVE: OBJECTIVE: ASSESSMENT AND PLAN: Agree with resident's findings and plan for detox.
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
[2020-01-23] MEDS ORDERED: QUEtiapine FUMARATE 50 MG TABLET PO PRN (08:54)
[2020-01-23 09:35] VITALS: BP 117/66; PULSE 71
[2020-01-23] MEDS ORDERED: NICOTINE 7 MG/24 HOURS TOPICAL PATCH TD SCH (10:00)
[2020-01-23] MEDS ORDERED: CHOLECALCIFEROL (VIT D3) 1,000 UNIT (25 MCG) TABLET PO SCH (10:00)
[2020-01-23] MEDS ORDERED: PANTOPRAZOLE 40 MG TABLET PO SCH (10:00)
[2020-01-23] MEDS ORDERED: PRENATAL VITAMINS W/ FOLIC ACID TABLET (FP) PO SCH (10:00)
[2020-01-23] MEDS ORDERED: hydrOXYzine PAMOATE 25 MG CAPSULE (FP) PO PRN (11:09)
--- NOTE | 2020-01-23 11:11 | PN ---
S CIWA - CIWA Score Nausea/Vomitin-No Nausea/No Vomiting Muscle Tremors: 2 Anxiety: 2 Agitation: 3 Paroxysmal Sweats: 3 Orientation: 0-Oriented Tacttile Disturbances: 0-None Auditory Disturbances: 0-None Visual Disturbances: 0-None Headache: 0-None Present CIWA-Ar Total Score: 10 [facility] Progress Note (SOAP) Subjective: sweats shakes body aches interrupted sleep irritable agitation Objective: 01/23/20 11:11 Vital Signs Temperature 97.3 F L 01/23/20 09:34 Pulse Rate 71 01/23/20 09:34 Respiratory Rate 18 01/23/20 09:34 Blood Pressure 117/66 01/23/20 09:34 O2 Sat by Pulse Oximetry (%) 98 01/23/20 09:34 Laboratory Tests 01/22/20 01/22/20 01/22/20 14:00 14:00 14:00 WBC 8.0 RBC 5.01 Hgb 14.4 Hct 45.3 MCV 90.4 MCH 28.8 MCHC 31.8 L RDW 13.0 Plt Count 251 MPV 9.5 Sodium 139 Potassium 3.7 Chloride 106 Carbon Dioxide 27 Anion Gap 7 L BUN 8.5 Creatinine 1.3 Est GFR (CKD-EPI)AfAm 70.69 Est GFR (CKD-EPI)NonAf 60.99 Random Glucose 83 Calcium 9.6 Total Bilirubin 0.7 AST 37 ALT 57 Alkaline Phosphatase 95 Total Protein 8.1 Albumin 3.9 Syphilis Serology Non-reactive labs noted aaox3 lying in bed no acute distress Assessment: 01/23/20 11:11 withdrawals Plan: continue detox increase fluids
[2020-01-23] MEDS: TIMOLOL 0.25% OPHTHALMIC SOL 5 ML BOTTLE OU SCH (11:49)
--- NOTE | 2020-01-23 11:49 | PN ---
[facility] Progress Note Note: pt states he needs to go. "I have things to do and get to [facility]." pt declined elaborating to his reasons for leaving nor why he wound not stay to complete his detox. Pt was advised to stay and prevent relapse, seizure, DT, OD and or loss however pt chose to sign out AMA.
--- NOTE | 2020-01-23 11:52 | DS ---
[facility] Detox Discharge Summary Admission Date: 01/22/20 Discharge Date: 01/23/20 - History Present History: Alcohol Dependence, Cocaine Dependence - Physical Exam Results Vital Signs: Vital Signs Temperature 97.3 F L 01/23/20 09:34 Pulse Rate 71 01/23/20 09:34 Respiratory Rate 18 01/23/20 09:34 Blood Pressure 117/66 01/23/20 09:34 O2 Sat by Pulse Oximetry (%) 98 01/23/20 09:34 Pertinent Admission Physical Exam Findings: Vital Signs Temperature 97.3 F L 01/23/20 09:34 Pulse Rate 71 01/23/20 09:34 Respiratory Rate 18 01/23/20 09:34 Blood Pressure 117/66 01/23/20 09:34 O2 Sat by Pulse Oximetry (%) 98 01/23/20 09:34 Laboratory Tests 01/22/20 01/22/20 01/22/20 14:00 14:00 14:00 WBC 8.0 RBC 5.01 Hgb 14.4 Hct 45.3 MCV 90.4 MCH 28.8 MCHC 31.8 L RDW 13.0 Plt Count 251 MPV 9.5 Sodium 139 Potassium 3.7 Chloride 106 Carbon Dioxide 27 Anion Gap 7 L BUN 8.5 Creatinine 1.3 Est GFR (CKD-EPI)AfAm 70.69 Est GFR (CKD-EPI)NonAf 60.99 Random Glucose 83 Calcium 9.6 Total Bilirubin 0.7 AST 37 ALT 57 Alkaline Phosphatase 95 Total Protein 8.1 Albumin 3.9 Syphilis Serology Non-reactive labs noted aaox3 ambulating no acute distress lungs CTA - Treatment Hospital Course: Detox Protocol Followed, Detoxed Safely, Responded well, Discharged Condition Good, Rehab Referral Accepted - Medication Discharge Medications: Ambulatory Orders Cholecalciferol (Vitamin D3) [Vitamin D -] 2,000 unit PO DAILY #30 tab 03/19/19 Dorzolamide HCl [Trusopt 2% -] 1 drop OU TID 30 Days #1 bottle 03/19/19 Latanoprost 0.005% Eye Drops [Xalatan 0.005% Eye Drops -] 1 drop OU HS 30 Days #1 bottle 03/19/19 [place]-3 Fatty Acids/Fish Oil [Fish Oil 1,000 mg Capsule] 1 each PO DAILY 01/22/20 Timolol 0.25% [Timoptic 0.25%] 1 drop OU BID 01/22/20 - Diagnosis (1) Alcohol dependence with withdrawal, uncomplicated Current Visit: Yes Status: Chronic (2) Cocaine use disorder Current Visit: Yes Status: Chronic (3) Substance-induced sleep disorder Current Visit: Yes Status: Acute (4) GERD (gastroesophageal reflux disease) Current Visit: Yes Status: Chronic Qualifiers: Esophagitis presence: without esophagitis Qualified Code(s): K21.9 - Gastro-esophageal reflux disease without esophagitis (5) Glaucoma Current Visit: Yes Status: Chronic Qualifiers: Glaucoma type: unspecified Laterality: bilateral Qualified Code(s): H40.9 - Unspecified glaucoma (6) Insomnia Current Visit: Yes Status: Chronic Qualifiers: Insomnia type: unspecified Qualified Code(s): G47.00 - Insomnia, unspecifi ed (7) History of positive PPD Current Visit: Yes Status: Resolved (8) Seizure Current Visit: No Status: Active (9) Syncope Current Visit: No Status: Active (10) depression Current Visit: No Status: Active (11) Nicotine abuse Current Visit: Yes Status: Chronic - AMA Did Patient Leave Against Medical Advice: Yes
[2020-01-23] MEDS ORDERED: QUEtiapine FUMARATE 50 MG TABLET PO SCH (22:00)
[2020-01-24] MEDS ORDERED: chlordiazePOXIDE HCL 25 MG CAPSULE PO SCH (05:00)
[2020-01-25] MEDS ORDERED: chlordiazePOXIDE HCL 10 MG CAPSULE PO PRN
[2020-01-25] MEDS ORDERED: chlordiazePOXIDE HCL 10 MG CAPSULE PO SCH (05:00)
[2020-01-26] MEDS ORDERED: chlordiazePOXIDE HCL 10 MG CAPSULE PO SCH (05:00)
[2020-01-27] MEDS ORDERED: chlordiazePOXIDE HCL 10 MG CAPSULE PO ONE (05:00)
== END 2020-01-23 12:10 | disposition left against medical advice (07) | DRG 770 ==
LOC: YASAS 13:08 → Y6N 14:23
PROVIDERS: ADMIT Allergy & Immunology; ATTEND Allergy & Immunology
PROC: HZ2ZZZZ Detoxification Services for Substance Abuse Treatment (ICD-10-PCS; principal; 2020-01-22)
DX: F10.230 Alcohol dependence with withdrawal, uncomplicated (principal); F14.20 Cocaine dependence, uncomplicated; F19.282 Other psychoactive substance dependence with psychoactive substance-induced sleep disorder; F32.9 Major depressive disorder, single episode, unspecified; G47.00 Insomnia, unspecified; H40.9 Unspecified glaucoma; K21.9 Gastro-esophageal reflux disease without esophagitis; R76.11 Nonspecific reaction to tuberculin skin test without active tuberculosis; Z87.891 Personal history of nicotine dependence; Z90.49 Acquired absence of other specified parts of digestive tract; Z98.890 Other specified postprocedural states
CPT/HCPCS: 36415; 80053; 85027; 86780; 87389; C9803; U0003

== ENCOUNTER 2021-11-09 12:39 | Inpatient (IN) | payer OTHER ==
[2021-11-09 15:47] VITALS: BMI 28.7
[2021-11-09] MEDS ORDERED: IBUPROFEN 600 MG TABLET (FP) PO PRN (17:14)
[2021-11-09] MEDS ORDERED: ACETAMINOPHEN 325 MG TABLET (FP) PO PRN ×2 (17:14)
[2021-11-09] MEDS ORDERED: LOPERAMIDE HCL 2 MG CAPSULE PO PRN (17:14)
[2021-11-09] MEDS ORDERED: MAGNESIUM HYDROX 2400MG/30ML ORAL SUSPENSION 30 ML CUP PO PRN (17:14)
[2021-11-09] MEDS ORDERED: IBUPROFEN 400 MG TABLET (FP) PO PRN (17:14)
[2021-11-09] MEDS ORDERED: BISMUTH SUBSALICYLATE 524 MG/30 ML PO PRN (17:14)
[2021-11-09] MEDS ORDERED: DICYCLOMINE HCL 10 MG CAPSULE PO PRN (17:14)
[2021-11-09] MEDS ORDERED: MAGNESIUM CITRATE 300 ML BOTTLE PO PRN (17:14)
[2021-11-09] MEDS ORDERED: METHOCARBAMOL 500 MG TABLET PO PRN (17:14)
[2021-11-09] MEDS ORDERED: BENZOCAINE/MENTHOL (CHLORASEPTIC ) LOZENGE MM PRN (17:14)
[2021-11-09] MEDS ORDERED: chlordiazePOXIDE HCL 25 MG CAPSULE PO PRN (17:14)
[2021-11-09] MEDS ORDERED: ONDANSETRON *ODT* 4 MG TABLET SL PRN (17:14)
[2021-11-09] MEDS: MELATONIN 5 MG TABLETS PO SCH (22:55)
[2021-11-09] MEDS: chlordiazePOXIDE HCL 25 MG CAPSULE PO SCH (22:55)
[2021-11-09] MEDS: THIAMINE HCL 100 MG TABLET (FP) PO SCH (22:55)
[2021-11-09] MEDS: hydrOXYzine PAMOATE 25 MG CAPSULE (FP) PO PRN (22:56)
[2021-11-09] MEDS: DORZOLAMIDE 2% HCL OPHTHALMIC SOLUTION 10 ML BOTTLE OU SCH (22:58)
[2021-11-09] MEDS: TIMOLOL 0.5% OPHTHALMIC SOL 5 ML BOTTLE OU SCH (22:59)
[2021-11-09] MEDS: LATANOPROST 0.005% OPHTH SOLN 2.5ML BOTTLE OU SCH (23:00)
[2021-11-10] MEDS: chlordiazePOXIDE HCL 25 MG CAPSULE PO SCH ×4 (06:31→22:37)
[2021-11-10] MEDS: TIMOLOL 0.5% OPHTHALMIC SOL 5 ML BOTTLE OU SCH ×3 (06:37→22:42)
[2021-11-10] MEDS: DORZOLAMIDE 2% HCL OPHTHALMIC SOLUTION 10 ML BOTTLE OU SCH ×3 (07:26→22:42)
[2021-11-10] MEDS: PRENATAL VITAMINS W/ FOLIC ACID TABLET (FP) PO SCH (10:17)
[2021-11-10 11:02] LABS: HEMATOCRIT 40.7 % (35.4-49); HEMOGLOBIN 13.6 GM/dL (11.7-16.9); MCH 30.2 pg (25.7-33.7); MCHC 33.4 g/dl (32.0-35.9); MEAN CELL VOLUME 90.4 fl (80-96); MEAN PLT VOLUME 9.6 fl (7.5-11.1); PLATELET COUNT 226 10^3/uL (134-434); RBC 4.51 M/mm3 (4.00-5.60); RDW 13.3 % (11.9-15.9); WHITE BLOOD COUNT 7.3 K/mm3 (4.0-10.0)
[2021-11-10 11:30] LABS: ALBUMIN 3.4 g/dl (3.4-5.0); CALCIUM 8.9 mg/dL (8.5-10.1)
[2021-11-10 11:31] LABS: BLOOD UREA NITROGEN 15.2 mg/dL (7-18)
[2021-11-10 11:34] LABS: CREATININE 1.1 mg/dL (0.55-1.3)
[2021-11-10 11:35] LABS: BILIRUBIN,TOTAL 0.4 mg/dL (0.2-1)
[2021-11-10 12:10] LABS: HIV INTERPRETATION NEGATIVE (NEGATIVE)
[2021-11-10 20:57] VITALS: RESP 18
[2021-11-10] MEDS: MELATONIN 5 MG TABLETS PO SCH (22:35)
[2021-11-10] MEDS: THIAMINE HCL 100 MG TABLET (FP) PO SCH (22:37)
[2021-11-10] MEDS: hydrOXYzine PAMOATE 25 MG CAPSULE (FP) PO PRN (22:40)
[2021-11-10] MEDS: LATANOPROST 0.005% OPHTH SOLN 2.5ML BOTTLE OU SCH (22:42)
[2021-11-11] MEDS: TIMOLOL 0.5% OPHTHALMIC SOL 5 ML BOTTLE OU SCH ×3 (05:20→23:06)
[2021-11-11] MEDS: DORZOLAMIDE 2% HCL OPHTHALMIC SOLUTION 10 ML BOTTLE OU SCH ×3 (05:20→23:06)
[2021-11-11] MEDS: chlordiazePOXIDE HCL 25 MG CAPSULE PO SCH ×4 (05:21→23:07)
[2021-11-11] MEDS: MAG HYDROX/AL HYDROX/SIMETH 30 ML UNIT-DOSE CUP PO PRN ×2 (05:48→15:49)
[2021-11-11] MEDS: PRENATAL VITAMINS W/ FOLIC ACID TABLET (FP) PO SCH (10:08)
[2021-11-11] MEDS: PANTOPRAZOLE 40 MG TABLET PO SCH (19:36)
[2021-11-11] MEDS ORDERED: QUEtiapine FUMARATE 50 MG TABLET PO PRN (22:00)
[2021-11-11] MEDS: LATANOPROST 0.005% OPHTH SOLN 2.5ML BOTTLE OU SCH (23:05)
[2021-11-11] MEDS: THIAMINE HCL 100 MG TABLET (FP) PO SCH (23:07)
[2021-11-12] MEDS ORDERED: chlordiazePOXIDE HCL 10 MG CAPSULE PO PRN
[2021-11-12] MEDS: TIMOLOL 0.5% OPHTHALMIC SOL 5 ML BOTTLE OU SCH ×2 (05:46→13:52)
[2021-11-12] MEDS: DORZOLAMIDE 2% HCL OPHTHALMIC SOLUTION 10 ML BOTTLE OU SCH ×2 (05:46→13:52)
[2021-11-12] MEDS: chlordiazePOXIDE HCL 10 MG CAPSULE PO SCH ×2 (05:47→10:35)
[2021-11-12 08:51] VITALS: BP 110/70; PULSE 71; TEMP 97.3
[2021-11-12] MEDS: PANTOPRAZOLE 40 MG TABLET PO SCH (10:35)
[2021-11-12] MEDS: PRENATAL VITAMINS W/ FOLIC ACID TABLET (FP) PO SCH (10:35)
[2021-11-13] MEDS ORDERED: chlordiazePOXIDE HCL 10 MG CAPSULE PO SCH (05:00)
[2021-11-14] MEDS ORDERED: chlordiazePOXIDE HCL 10 MG CAPSULE PO ONE (05:00)
== END 2021-11-12 14:28 | disposition home or self-care (01) | DRG 774 ==
LOC: YASAS 12:39 → Y3N 18:02
PROVIDERS: ADMIT Allergy & Immunology; ATTEND Surgery
PROC: HZ2ZZZZ Detoxification Services for Substance Abuse Treatment (ICD-10-PCS; principal; 2021-11-09)
DX: F10.230 Alcohol dependence with withdrawal, uncomplicated (principal); F14.20 Cocaine dependence, uncomplicated; F17.210 Nicotine dependence, cigarettes, uncomplicated; F19.282 Other psychoactive substance dependence with psychoactive substance-induced sleep disorder; F19.280 Other psychoactive substance dependence with psychoactive substance-induced anxiety disorder; F41.9 Anxiety disorder, unspecified; H40.1130 Primary open-angle glaucoma, bilateral, stage unspecified; Z86.11 Personal history of tuberculosis
CPT/HCPCS: 36415; 71046-TC-FY; 80053; 85027; 86780; 87389; C9803-CS; U0003; U0005

== ENCOUNTER 2021-12-02 12:15 | Inpatient (IN) | payer OTHER ==
[2021-12-02 14:05] VITALS: BMI 28.7
[2021-12-02] MEDS ORDERED: ACETAMINOPHEN 325 MG TABLET (FP) PO PRN (16:06)
[2021-12-02] MEDS ORDERED: LOPERAMIDE HCL 2 MG CAPSULE PO PRN (16:06)
[2021-12-02] MEDS ORDERED: MAGNESIUM CITRATE 300 ML BOTTLE PO PRN (16:06)
[2021-12-02] MEDS ORDERED: P-EPHED 60MG/TRIPROLIDI 2.5MG TABLET PO PRN (16:06)
[2021-12-02] MEDS ORDERED: IBUPROFEN 400 MG TABLET (FP) PO PRN (16:06)
[2021-12-02] MEDS ORDERED: guaiFENesin 200 MG/10 ML 10 ML UNIT-DOSE CUPS PO PRN (16:06)
[2021-12-02] MEDS ORDERED: NICOTINE 10 MG CARTRIDGE (INHALER) IH PRN (16:06)
[2021-12-02] MEDS ORDERED: MAGNESIUM HYDROX 2400MG/30ML ORAL SUSPENSION 30 ML CUP PO PRN (16:06)
[2021-12-02] MEDS: THIAMINE HCL 100 MG TABLET (FP) PO SCH (21:15)
[2021-12-02] MEDS: MELATONIN 5 MG TABLETS PO SCH (21:15)
[2021-12-02] MEDS: PRENATAL VITAMINS W/ FOLIC ACID TABLET (FP) PO SCH (21:16)
[2021-12-02] MEDS: NICOTINE 7 MG/24 HOURS TOPICAL PATCH TD SCH (21:16)
[2021-12-02] MEDS: hydrOXYzine PAMOATE 25 MG CAPSULE (FP) PO SCH ×2 (21:17→21:42)
[2021-12-02] MEDS: DORZOLAMIDE 2% HCL OPHTHALMIC SOLUTION 10 ML BOTTLE OU SCH (21:47)
[2021-12-02] MEDS: LATANOPROST 0.005% OPHTH SOLN 2.5ML BOTTLE OU SCH (21:48)
[2021-12-02 21:49] VITALS: RESP 18
[2021-12-03] MEDS: hydrOXYzine PAMOATE 25 MG CAPSULE (FP) PO SCH (06:45)
[2021-12-03] MEDS: DORZOLAMIDE 2% HCL OPHTHALMIC SOLUTION 10 ML BOTTLE OU SCH ×3 (08:18→21:16)
[2021-12-03] MEDS: PRENATAL VITAMINS W/ FOLIC ACID TABLET (FP) PO SCH (09:29)
[2021-12-03] MEDS: NICOTINE 7 MG/24 HOURS TOPICAL PATCH TD SCH (10:17)
[2021-12-03 11:04] LABS: PH,URINE 5.5 (5.0-8.0); URINE APPEARANCE CLEAR; URINE BILIRUBIN NEGATIVE (NEGATIVE); URINE COLOR YELLOW; URINE GLUCOSE (UA) NEGATIVE (NEGATIVE); URINE KETONE NEGATIVE (NEGATIVE); URINE LEUK ESTERASE NEGATIVE (NEGATIVE); URINE NITRITE NEGATIVE (NEGATIVE); URINE PROTEIN NEGATIVE (NEGATIVE); URINE UROBILINOGEN 0.2 mg/dL (0.2-1.0)
[2021-12-03] MEDS: TIMOLOL 0.5% OPHTHALMIC SOL 5 ML BOTTLE OU SCH ×3 (14:38→21:16)
[2021-12-03] MEDS: THIAMINE HCL 100 MG TABLET (FP) PO SCH (21:16)
[2021-12-03] MEDS: MELATONIN 5 MG TABLETS PO SCH (21:16)
[2021-12-03] MEDS: OFLOXACIN 0.3% OTIC SOLUTION 5 ML BOTTLE AU SCH (21:17)
[2021-12-03] MEDS: LATANOPROST 0.005% OPHTH SOLN 2.5ML BOTTLE OU SCH (21:31)
[2021-12-04] MEDS: DORZOLAMIDE 2% HCL OPHTHALMIC SOLUTION 10 ML BOTTLE OU SCH ×3 (06:11→21:20)
[2021-12-04] MEDS: PRENATAL VITAMINS W/ FOLIC ACID TABLET (FP) PO SCH (10:10)
[2021-12-04] MEDS: TIMOLOL 0.5% OPHTHALMIC SOL 5 ML BOTTLE OU SCH ×2 (10:11→21:20)
[2021-12-04] MEDS: OFLOXACIN 0.3% OTIC SOLUTION 5 ML BOTTLE AU SCH ×2 (10:11→21:22)
[2021-12-04] MEDS: NICOTINE 7 MG/24 HOURS TOPICAL PATCH TD SCH (10:11)
[2021-12-04 10:49] LABS: HEMATOCRIT 42.3 % (35.4-49); HEMOGLOBIN 13.7 GM/dL (11.7-16.9); MCH 29.6 pg (25.7-33.7); MCHC 32.4 g/dl (32.0-35.9); MEAN CELL VOLUME 91.5 fl (80-96); MEAN PLT VOLUME 10.2 fl (7.5-11.1); PLATELET COUNT 248 10^3/uL (134-434); RBC 4.63 M/mm3 (4.00-5.60); RDW 13.4 % (11.9-15.9); WHITE BLOOD COUNT 6.8 K/mm3 (4.0-10.0)
[2021-12-04 11:16] LABS: ALBUMIN 3.4 g/dl (3.4-5.0); BILIRUBIN,TOTAL 0.4 mg/dL (0.2-1); BLOOD UREA NITROGEN 11.6 mg/dL (7-18); CALCIUM 9.3 mg/dL (8.5-10.1); CREATININE 1.1 mg/dL (0.55-1.3); TOT PROT 7.1 g/dl (6.4-8.2)
[2021-12-04 11:34] LABS: SYPHILIS W/ RPR CONF NON-REACTIVE (NONREACTIVE)
[2021-12-04] MEDS: MELATONIN 5 MG TABLETS PO SCH (21:21)
[2021-12-04] MEDS: LATANOPROST 0.005% OPHTH SOLN 2.5ML BOTTLE OU SCH (21:21)
[2021-12-04] MEDS: THIAMINE HCL 100 MG TABLET (FP) PO SCH (21:21)
[2021-12-05] MEDS: DORZOLAMIDE 2% HCL OPHTHALMIC SOLUTION 10 ML BOTTLE OU SCH ×3 (06:16→21:41)
[2021-12-05] MEDS: PRENATAL VITAMINS W/ FOLIC ACID TABLET (FP) PO SCH (09:45)
[2021-12-05] MEDS: OFLOXACIN 0.3% OTIC SOLUTION 5 ML BOTTLE AU SCH ×2 (09:46→21:42)
[2021-12-05] MEDS: TIMOLOL 0.5% OPHTHALMIC SOL 5 ML BOTTLE OU SCH ×2 (09:47→21:41)
[2021-12-05] MEDS: NICOTINE 7 MG/24 HOURS TOPICAL PATCH TD SCH (09:47)
[2021-12-05] MEDS: MELATONIN 5 MG TABLETS PO SCH (21:10)
[2021-12-05] MEDS: THIAMINE HCL 100 MG TABLET (FP) PO SCH (21:10)
[2021-12-05] MEDS: QUEtiapine FUMARATE 50 MG TABLET PO SCH (21:11)
[2021-12-05] MEDS: LATANOPROST 0.005% OPHTH SOLN 2.5ML BOTTLE OU SCH (21:41)
[2021-12-06] MEDS: DORZOLAMIDE 2% HCL OPHTHALMIC SOLUTION 10 ML BOTTLE OU SCH ×3 (06:12→22:42)
[2021-12-06] MEDS: NICOTINE 7 MG/24 HOURS TOPICAL PATCH TD SCH (09:35)
[2021-12-06] MEDS: PRENATAL VITAMINS W/ FOLIC ACID TABLET (FP) PO SCH (09:35)
[2021-12-06] MEDS: TIMOLOL 0.5% OPHTHALMIC SOL 5 ML BOTTLE OU SCH ×2 (09:36→22:42)
[2021-12-06] MEDS: OFLOXACIN 0.3% OTIC SOLUTION 5 ML BOTTLE AU SCH ×2 (09:36→22:42)
[2021-12-06] MEDS: THIAMINE HCL 100 MG TABLET (FP) PO SCH (21:07)
[2021-12-06] MEDS: QUEtiapine FUMARATE 50 MG TABLET PO SCH (21:07)
[2021-12-06] MEDS: MELATONIN 5 MG TABLETS PO SCH (21:07)
[2021-12-06] MEDS: LATANOPROST 0.005% OPHTH SOLN 2.5ML BOTTLE OU SCH (22:42)
[2021-12-07] MEDS: DORZOLAMIDE 2% HCL OPHTHALMIC SOLUTION 10 ML BOTTLE OU SCH ×3 (06:21→21:06)
[2021-12-07] MEDS: OFLOXACIN 0.3% OTIC SOLUTION 5 ML BOTTLE AU SCH ×2 (09:42→21:06)
[2021-12-07] MEDS: NICOTINE 7 MG/24 HOURS TOPICAL PATCH TD SCH (09:43)
[2021-12-07] MEDS: PRENATAL VITAMINS W/ FOLIC ACID TABLET (FP) PO SCH (09:43)
[2021-12-07] MEDS: TIMOLOL 0.5% OPHTHALMIC SOL 5 ML BOTTLE OU SCH ×2 (09:44→21:06)
[2021-12-07] MEDS: QUEtiapine FUMARATE 50 MG TABLET PO SCH (21:05)
[2021-12-07] MEDS: THIAMINE HCL 100 MG TABLET (FP) PO SCH (21:05)
[2021-12-07] MEDS: MELATONIN 5 MG TABLETS PO SCH (21:05)
[2021-12-07] MEDS: LATANOPROST 0.005% OPHTH SOLN 2.5ML BOTTLE OU SCH (21:06)
[2021-12-08] MEDS: DORZOLAMIDE 2% HCL OPHTHALMIC SOLUTION 10 ML BOTTLE OU SCH ×3 (06:10→21:17)
[2021-12-08] MEDS: PRENATAL VITAMINS W/ FOLIC ACID TABLET (FP) PO SCH (09:50)
[2021-12-08] MEDS: NICOTINE 7 MG/24 HOURS TOPICAL PATCH TD SCH (09:50)
[2021-12-08] MEDS: OFLOXACIN 0.3% OTIC SOLUTION 5 ML BOTTLE AU SCH ×2 (09:50→21:17)
[2021-12-08] MEDS: TIMOLOL 0.5% OPHTHALMIC SOL 5 ML BOTTLE OU SCH ×3 (09:50→21:18)
[2021-12-08] MEDS: MAG HYDROX/AL HYDROX/SIMETH 30 ML UNIT-DOSE CUP PO PRN (17:31)
[2021-12-08] MEDS: THIAMINE HCL 100 MG TABLET (FP) PO SCH (21:16)
[2021-12-08] MEDS: MELATONIN 5 MG TABLETS PO SCH (21:16)
[2021-12-08] MEDS: QUEtiapine FUMARATE 50 MG TABLET PO SCH (21:16)
[2021-12-08] MEDS: LATANOPROST 0.005% OPHTH SOLN 2.5ML BOTTLE OU SCH (21:17)
[2021-12-09] MEDS: DORZOLAMIDE 2% HCL OPHTHALMIC SOLUTION 10 ML BOTTLE OU SCH ×3 (06:28→21:08)
[2021-12-09] MEDS: TIMOLOL 0.5% OPHTHALMIC SOL 5 ML BOTTLE OU SCH ×2 (06:28→21:08)
[2021-12-09] MEDS: PRENATAL VITAMINS W/ FOLIC ACID TABLET (FP) PO SCH (10:04)
[2021-12-09] MEDS: OFLOXACIN 0.3% OTIC SOLUTION 5 ML BOTTLE AU SCH ×2 (10:04→21:08)
[2021-12-09] MEDS: NICOTINE 7 MG/24 HOURS TOPICAL PATCH TD SCH (10:04)
[2021-12-09] MEDS: MAG HYDROX/AL HYDROX/SIMETH 30 ML UNIT-DOSE CUP PO PRN (18:49)
[2021-12-09] MEDS: MELATONIN 5 MG TABLETS PO SCH (21:08)
[2021-12-09] MEDS: QUEtiapine FUMARATE 50 MG TABLET PO SCH (21:08)
[2021-12-09] MEDS: LATANOPROST 0.005% OPHTH SOLN 2.5ML BOTTLE OU SCH (21:08)
[2021-12-09] MEDS: THIAMINE HCL 100 MG TABLET (FP) PO SCH (21:08)
[2021-12-10] MEDS: TIMOLOL 0.5% OPHTHALMIC SOL 5 ML BOTTLE OU SCH ×2 (06:39→21:09)
[2021-12-10] MEDS: DORZOLAMIDE 2% HCL OPHTHALMIC SOLUTION 10 ML BOTTLE OU SCH ×3 (06:40→21:08)
[2021-12-10] MEDS: OFLOXACIN 0.3% OTIC SOLUTION 5 ML BOTTLE AU SCH (09:57)
[2021-12-10] MEDS: PRENATAL VITAMINS W/ FOLIC ACID TABLET (FP) PO SCH (09:57)
[2021-12-10] MEDS: NICOTINE 7 MG/24 HOURS TOPICAL PATCH TD SCH (09:57)
[2021-12-10] MEDS: QUEtiapine FUMARATE 50 MG TABLET PO SCH (21:08)
[2021-12-10] MEDS: THIAMINE HCL 100 MG TABLET (FP) PO SCH (21:08)
[2021-12-10] MEDS: MELATONIN 5 MG TABLETS PO SCH (21:08)
[2021-12-10] MEDS: LATANOPROST 0.005% OPHTH SOLN 2.5ML BOTTLE OU SCH (21:09)
[2021-12-10] MEDS: MAG HYDROX/AL HYDROX/SIMETH 30 ML UNIT-DOSE CUP PO PRN (21:51)
[2021-12-11] MEDS: DORZOLAMIDE 2% HCL OPHTHALMIC SOLUTION 10 ML BOTTLE OU SCH ×3 (06:33→21:16)
[2021-12-11] MEDS: TIMOLOL 0.5% OPHTHALMIC SOL 5 ML BOTTLE OU SCH ×2 (06:33→21:16)
[2021-12-11] MEDS: NICOTINE 7 MG/24 HOURS TOPICAL PATCH TD SCH (09:45)
[2021-12-11] MEDS: PRENATAL VITAMINS W/ FOLIC ACID TABLET (FP) PO SCH (09:45)
[2021-12-11] MEDS: QUEtiapine FUMARATE 50 MG TABLET PO SCH (21:15)
[2021-12-11] MEDS: MELATONIN 5 MG TABLETS PO SCH (21:15)
[2021-12-11] MEDS: THIAMINE HCL 100 MG TABLET (FP) PO SCH (21:15)
[2021-12-11] MEDS: LATANOPROST 0.005% OPHTH SOLN 2.5ML BOTTLE OU SCH (21:16)
[2021-12-12] MEDS: TIMOLOL 0.5% OPHTHALMIC SOL 5 ML BOTTLE OU SCH ×2 (05:59→21:13)
[2021-12-12] MEDS: DORZOLAMIDE 2% HCL OPHTHALMIC SOLUTION 10 ML BOTTLE OU SCH ×3 (06:00→21:13)
[2021-12-12] MEDS: PRENATAL VITAMINS W/ FOLIC ACID TABLET (FP) PO SCH (09:55)
[2021-12-12] MEDS: NICOTINE 7 MG/24 HOURS TOPICAL PATCH TD SCH (09:55)
[2021-12-12] MEDS: THIAMINE HCL 100 MG TABLET (FP) PO SCH (21:11)
[2021-12-12] MEDS: MELATONIN 5 MG TABLETS PO SCH (21:11)
[2021-12-12] MEDS: LATANOPROST 0.005% OPHTH SOLN 2.5ML BOTTLE OU SCH (21:12)
[2021-12-12] MEDS: QUEtiapine FUMARATE 50 MG TABLET PO SCH (21:12)
[2021-12-13] MEDS: DORZOLAMIDE 2% HCL OPHTHALMIC SOLUTION 10 ML BOTTLE OU SCH ×3 (06:28→21:17)
[2021-12-13] MEDS: TIMOLOL 0.5% OPHTHALMIC SOL 5 ML BOTTLE OU SCH ×2 (06:28→21:16)
[2021-12-13] MEDS: PRENATAL VITAMINS W/ FOLIC ACID TABLET (FP) PO SCH (10:13)
[2021-12-13] MEDS: NICOTINE 7 MG/24 HOURS TOPICAL PATCH TD SCH (10:14)
[2021-12-13] MEDS: MELATONIN 5 MG TABLETS PO SCH (21:16)
[2021-12-13] MEDS: THIAMINE HCL 100 MG TABLET (FP) PO SCH (21:16)
[2021-12-13] MEDS: QUEtiapine FUMARATE 50 MG TABLET PO SCH (21:16)
[2021-12-13] MEDS: LATANOPROST 0.005% OPHTH SOLN 2.5ML BOTTLE OU SCH (21:17)
[2021-12-14] MEDS: TIMOLOL 0.5% OPHTHALMIC SOL 5 ML BOTTLE OU SCH ×2 (06:45→21:01)
[2021-12-14] MEDS: DORZOLAMIDE 2% HCL OPHTHALMIC SOLUTION 10 ML BOTTLE OU SCH ×3 (06:46→21:01)
[2021-12-14] MEDS: NICOTINE 7 MG/24 HOURS TOPICAL PATCH TD SCH (09:35)
[2021-12-14] MEDS: PRENATAL VITAMINS W/ FOLIC ACID TABLET (FP) PO SCH (09:35)
[2021-12-14] MEDS: THIAMINE HCL 100 MG TABLET (FP) PO SCH (21:00)
[2021-12-14] MEDS: MELATONIN 5 MG TABLETS PO SCH (21:00)
[2021-12-14] MEDS: QUEtiapine FUMARATE 50 MG TABLET PO SCH (21:00)
[2021-12-14] MEDS: LATANOPROST 0.005% OPHTH SOLN 2.5ML BOTTLE OU SCH (21:01)
[2021-12-15] MEDS: DORZOLAMIDE 2% HCL OPHTHALMIC SOLUTION 10 ML BOTTLE OU SCH (06:05)
[2021-12-15] MEDS: TIMOLOL 0.5% OPHTHALMIC SOL 5 ML BOTTLE OU SCH (06:05)
[2021-12-15 06:48] VITALS: BP 113/69; PULSE 69; TEMP 97.8
== END 2021-12-15 08:46 | disposition home or self-care (01) | DRG 772 ==
LOC: YASAS 12:15 → Y3W 19:38
PROVIDERS: ADMIT Allergy & Immunology; ATTEND Surgery
PROC: HZ42ZZZ Group Counseling for Substance Abuse Treatment, Cognitive-Behavioral (ICD-10-PCS; principal; 2021-12-02)
DX: F10.20 Alcohol dependence, uncomplicated (principal); F14.20 Cocaine dependence, uncomplicated; F41.9 Anxiety disorder, unspecified; G47.00 Insomnia, unspecified; K21.9 Gastro-esophageal reflux disease without esophagitis; H40.1130 Primary open-angle glaucoma, bilateral, stage unspecified; H61.21 Impacted cerumen, right ear; R76.11 Nonspecific reaction to tuberculin skin test without active tuberculosis
CPT/HCPCS: 36415; 71046-TC-FY; 80053; 81003; 85027; 86780; 86803; C9803-CS; U0003; U0005

== ENCOUNTER 2021-12-03 10:54 | Emergency (ER) | payer OTHER ==
[2021-12-03 11:03] VITALS: BP 121/70; PULSE 67; RESP 20; TEMP 98.1; BMI 29.0
== END 2021-12-03 12:25 | disposition home or self-care (01) ==
LOC: JERFT 10:54
DX: H61.21 Impacted cerumen, right ear (principal)
CPT/HCPCS: 99283-25

== ENCOUNTER 2022-04-05 08:30 | Inpatient (IN) | payer OTHER ==
[2022-04-05 09:22] VITALS: BMI 30.9
[2022-04-05] MEDS ORDERED: MAGNESIUM HYDROX 2400MG/30ML ORAL SUSPENSION 30 ML CUP PO PRN (10:00)
[2022-04-05] MEDS ORDERED: BENZOCAINE/MENTHOL (CHLORASEPTIC ) LOZENGE MM PRN (10:00)
[2022-04-05] MEDS ORDERED: POLYETHYLENE GLYCOL (HEALTHYLAX) 3350 17 GM PACKET PO PRN (10:00)
[2022-04-05] MEDS ORDERED: ACETAMINOPHEN 325 MG TABLET (FP) PO PRN ×2 (10:00)
[2022-04-05] MEDS ORDERED: NALOXONE HCL (KLOXXADO) 8 MG SPRAY NS PRN (10:00)
[2022-04-05] MEDS ORDERED: BISMUTH SUBSALICYLATE 524 MG/30 ML PO PRN (10:00)
[2022-04-05] MEDS ORDERED: ONDANSETRON *ODT* 4 MG TABLET SL PRN (10:00)
[2022-04-05] MEDS ORDERED: IBUPROFEN 400 MG TABLET (FP) PO PRN (10:00)
[2022-04-05] MEDS ORDERED: LOPERAMIDE HCL 2 MG CAPSULE PO PRN (10:00)
[2022-04-05] MEDS ORDERED: IBUPROFEN 600 MG TABLET (FP) PO PRN (10:00)
[2022-04-05] MEDS ORDERED: DICYCLOMINE HCL 10 MG CAPSULE PO PRN (10:00)
[2022-04-05] MEDS: METHOCARBAMOL 500 MG TABLET PO PRN (11:10)
[2022-04-05] MEDS: chlordiazePOXIDE HCL 25 MG CAPSULE PO PRN ×2 (11:11→16:02)
[2022-04-05] MEDS: PRENATAL VITAMINS W/ FOLIC ACID TABLET (FP) PO SCH (11:12)
[2022-04-05] MEDS ORDERED: DORZOLAMIDE 2% HCL OPHTHALMIC SOLUTION 10 ML BOTTLE OU SCH (14:00)
[2022-04-05] MEDS: TIMOLOL 0.5% OPHTHALMIC SOL 5 ML BOTTLE OU SCH (17:36)
[2022-04-05] MEDS: chlordiazePOXIDE HCL 25 MG CAPSULE PO SCH ×2 (17:37→22:17)
[2022-04-05] MEDS: DORZOLAMIDE 2% HCL OPHTHALMIC SOLUTION 10 ML BOTTLE OU SCH (17:37)
[2022-04-05] MEDS ORDERED: TIMOLOL 0.5% OPHTHALMIC SOL 5 ML BOTTLE OU SCH (22:00)
[2022-04-05] MEDS: MELATONIN 5 MG TABLETS PO SCH (22:17)
[2022-04-05] MEDS: THIAMINE HCL 100 MG TABLET (FP) PO SCH (22:17)
[2022-04-05] MEDS: QUEtiapine FUMARATE 50 MG TABLET PO SCH (22:17)
[2022-04-05] MEDS: LATANOPROST 0.005% OPHTH SOLN 2.5ML BOTTLE OU SCH (22:20)
[2022-04-06] MEDS: chlordiazePOXIDE HCL 25 MG CAPSULE PO SCH ×4 (05:20→22:09)
[2022-04-06] MEDS: TIMOLOL 0.5% OPHTHALMIC SOL 5 ML BOTTLE OU SCH ×2 (05:23→17:28)
[2022-04-06] MEDS: DORZOLAMIDE 2% HCL OPHTHALMIC SOLUTION 10 ML BOTTLE OU SCH ×3 (05:24→17:28)
[2022-04-06] MEDS: PRENATAL VITAMINS W/ FOLIC ACID TABLET (FP) PO SCH (10:14)
[2022-04-06 12:06] LABS: HEMATOCRIT 42.1 % (35.4-49); HEMOGLOBIN 13.7 GM/dL (11.7-16.9); MCH 29.7 pg (25.7-33.7); MCHC 32.5 g/dl (32.0-35.9); MEAN CELL VOLUME 91.4 fl (80-96); PLATELET COUNT 211 10^3/uL (134-434); RBC 4.61 M/mm3 (4.00-5.60); RDW 13.3 % (11.9-15.9); WHITE BLOOD COUNT 5.6 K/mm3 (4.0-10.0)
[2022-04-06 12:21] LABS: CALCIUM 9.2 mg/dL (8.5-10.1)
[2022-04-06 12:22] LABS: ALBUMIN 3.4 g/dl (3.4-5.0); BLOOD UREA NITROGEN 11.7 mg/dL (7-18); CREATININE 1.2 mg/dL (0.55-1.3)
[2022-04-06 12:23] LABS: TOT PROT 6.7 g/dl (6.4-8.2)
[2022-04-06 12:24] LABS: BILIRUBIN,TOTAL 0.3 mg/dL (0.2-1)
[2022-04-06] MEDS: MAG HYDROX/AL HYDROX/SIMETH 30 ML UNIT-DOSE CUP PO PRN (17:52)
[2022-04-06] MEDS: QUEtiapine FUMARATE 50 MG TABLET PO SCH (22:09)
[2022-04-06] MEDS: LATANOPROST 0.005% OPHTH SOLN 2.5ML BOTTLE OU SCH (22:09)
[2022-04-06] MEDS: THIAMINE HCL 100 MG TABLET (FP) PO SCH (22:09)
[2022-04-06] MEDS: MELATONIN 5 MG TABLETS PO SCH (22:09)
[2022-04-06] MEDS ORDERED: PANTOPRAZOLE 20 MG TABLET PO ONE (22:36)
[2022-04-07] MEDS: chlordiazePOXIDE HCL 25 MG CAPSULE PO SCH ×4 (05:22→22:56)
[2022-04-07] MEDS: DORZOLAMIDE 2% HCL OPHTHALMIC SOLUTION 10 ML BOTTLE OU SCH ×3 (05:22→17:56)
[2022-04-07] MEDS: TIMOLOL 0.5% OPHTHALMIC SOL 5 ML BOTTLE OU SCH ×2 (05:22→17:56)
[2022-04-07] MEDS: PRENATAL VITAMINS W/ FOLIC ACID TABLET (FP) PO SCH (10:03)
[2022-04-07] MEDS: MAG HYDROX/AL HYDROX/SIMETH 30 ML UNIT-DOSE CUP PO PRN (20:12)
[2022-04-07] MEDS: QUEtiapine FUMARATE 50 MG TABLET PO SCH (22:56)
[2022-04-07] MEDS: MELATONIN 5 MG TABLETS PO SCH (22:56)
[2022-04-07] MEDS: THIAMINE HCL 100 MG TABLET (FP) PO SCH (22:56)
[2022-04-07] MEDS: LATANOPROST 0.005% OPHTH SOLN 2.5ML BOTTLE OU SCH (22:57)
[2022-04-07] MEDS: METHOCARBAMOL 500 MG TABLET PO PRN (22:57)
[2022-04-08] MEDS ORDERED: chlordiazePOXIDE HCL 10 MG CAPSULE PO PRN
[2022-04-08] MEDS: DORZOLAMIDE 2% HCL OPHTHALMIC SOLUTION 10 ML BOTTLE OU SCH (06:08)
[2022-04-08] MEDS: chlordiazePOXIDE HCL 10 MG CAPSULE PO SCH ×2 (06:08→10:26)
[2022-04-08] MEDS: TIMOLOL 0.5% OPHTHALMIC SOL 5 ML BOTTLE OU SCH (06:09)
[2022-04-08 08:58] VITALS: BP 140/89; PULSE 98; RESP 19; TEMP 97.9
[2022-04-08] MEDS: PRENATAL VITAMINS W/ FOLIC ACID TABLET (FP) PO SCH (09:43)
[2022-04-09] MEDS ORDERED: chlordiazePOXIDE HCL 10 MG CAPSULE PO SCH (05:00)
[2022-04-10] MEDS ORDERED: chlordiazePOXIDE HCL 10 MG CAPSULE PO ONE (05:00)
== END 2022-04-08 08:58 | disposition left against medical advice (07) | DRG 770 ==
LOC: YASAS 08:30 → Y3N 10:27
PROVIDERS: ADMIT Allergy & Immunology; ATTEND Surgery
PROC: HZ2ZZZZ Detoxification Services for Substance Abuse Treatment (ICD-10-PCS; principal; 2022-04-05)
DX: F10.230 Alcohol dependence with withdrawal, uncomplicated (principal); F14.20 Cocaine dependence, uncomplicated; F41.9 Anxiety disorder, unspecified; F32.A Depression, unspecified; H40.1130 Primary open-angle glaucoma, bilateral, stage unspecified; K21.9 Gastro-esophageal reflux disease without esophagitis; G47.00 Insomnia, unspecified; Z87.891 Personal history of nicotine dependence
CPT/HCPCS: 36415; 80053; 85027; 86780; C9803-CS; Q0162; U0003; U0005

== ENCOUNTER 2022-06-17 11:49 | Inpatient (IN) | payer OTHER ==
[2022-06-17 12:02] VITALS: BMI 29.2
[2022-06-17] MEDS ORDERED: BENZOCAINE/MENTHOL (CHLORASEPTIC ) LOZENGE MM PRN (12:56)
[2022-06-17] MEDS ORDERED: NALOXONE HCL (KLOXXADO) 8 MG SPRAY NS PRN (12:56)
[2022-06-17] MEDS ORDERED: IBUPROFEN 400 MG TABLET (FP) PO PRN (12:56)
[2022-06-17] MEDS ORDERED: IBUPROFEN 600 MG TABLET (FP) PO PRN (12:56)
[2022-06-17] MEDS ORDERED: NALOXONE HCL 0.4 MG/ML VIAL IM PRN (12:56)
[2022-06-17] MEDS ORDERED: DICYCLOMINE HCL 10 MG CAPSULE PO PRN (12:56)
[2022-06-17] MEDS ORDERED: MAG HYDROX/AL HYDROX/SIMETH 30 ML UNIT-DOSE CUP PO PRN (12:56)
[2022-06-17] MEDS ORDERED: MAGNESIUM HYDROX 2400MG/30ML ORAL SUSPENSION 30 ML CUP PO PRN (12:56)
[2022-06-17] MEDS ORDERED: hydrOXYzine PAMOATE 25 MG CAPSULE (FP) PO PRN (12:56)
[2022-06-17] MEDS ORDERED: ACETAMINOPHEN 325 MG TABLET (FP) PO PRN (12:56)
[2022-06-17] MEDS ORDERED: ONDANSETRON *ODT* 4 MG TABLET SL PRN (12:56)
[2022-06-17] MEDS ORDERED: POLYETHYLENE GLYCOL (HEALTHYLAX) 3350 17 GM PACKET PO PRN (12:56)
[2022-06-17] MEDS ORDERED: LORazepam 1 MG TABLET PO PRN (12:56)
[2022-06-17] MEDS ORDERED: METHOCARBAMOL 500 MG TABLET PO PRN (12:56)
[2022-06-17] MEDS ORDERED: BENZONATATE 200 MG CAPSULE PO PRN (12:56)
[2022-06-17] MEDS ORDERED: guaiFENesin 600 MG TABLET.ER (FP) PO PRN (12:56)
[2022-06-17] MEDS ORDERED: BISMUTH SUBSALICYLATE 524 MG/30 ML PO PRN (12:56)
[2022-06-17] MEDS ORDERED: LOPERAMIDE HCL 2 MG CAPSULE PO PRN (12:56)
[2022-06-17] MEDS ORDERED: LORazepam 2 MG TABLET PO ONE (13:30)
[2022-06-17] MEDS ORDERED: TIMOLOL 0.5% OU SCH (14:00)
[2022-06-17] MEDS: PRENATAL VITAMINS W/ FOLIC ACID TABLET (FP) PO SCH (14:06)
[2022-06-17] MEDS ORDERED: LORazepam 2 MG TABLET ONE (14:12)
[2022-06-17] MEDS ORDERED: PRENATAL VITAMINS W/ FOLIC ACID TABLET (FP) PO ONE (14:12)
[2022-06-17 16:41] LABS: HEMATOCRIT 43.6 % (35.4-49); HEMOGLOBIN 14.5 GM/dL (11.7-16.9); MCH 29.7 pg (25.7-33.7); MCHC 33.3 g/dl (32.0-35.9); MEAN CELL VOLUME 89.2 fl (80-96); MEAN PLT VOLUME 9.4 fl (7.5-11.1); PLATELET COUNT 244 10^3/uL (134-434); RBC 4.89 M/mm3 (4.00-5.60); RDW 13.1 % (11.9-15.9); WHITE BLOOD COUNT 8.3 K/mm3 (4.0-10.0)
[2022-06-17 16:48] LABS: CALCIUM 9.3 mg/dL (8.5-10.1)
[2022-06-17 16:49] LABS: ALBUMIN 3.7 g/dl (3.4-5.0); BLOOD UREA NITROGEN 9.4 mg/dL (7-18)
[2022-06-17 16:52] LABS: CREATININE 1.1 mg/dL (0.55-1.3)
[2022-06-17 16:54] LABS: BILIRUBIN,TOTAL 0.6 mg/dL (0.2-1)
[2022-06-17 16:55] LABS: TOT PROT 7.6 g/dl (6.4-8.2)
[2022-06-17] MEDS: LORazepam 2 MG TABLET PO SCH ×2 (17:24→22:34)
[2022-06-17] MEDS ORDERED: TRAVOPROST OU SCH (22:00)
[2022-06-17] MEDS ORDERED: QUEtiapine FUMARATE 50 MG TABLET PO SCH (22:00)
[2022-06-17] MEDS: MELATONIN 5 MG TABLETS PO SCH (22:34)
[2022-06-17] MEDS: PATIENT'S OWN MEDICATION (NON-FORMULARY) (Dorzolamide Hcl/Timolol Maleat [Cosopt Eye Drops OU SCH (22:34)
[2022-06-17] MEDS: THIAMINE HCL 100 MG TABLET (FP) PO SCH (22:34)
[2022-06-17] MEDS: LATANOPROST 0.005% OPHTH SOLN 2.5ML BOTTLE OU SCH (22:41)
[2022-06-18] MEDS: LORazepam 2 MG TABLET PO SCH ×4 (05:18→22:23)
[2022-06-18] MEDS: PRENATAL VITAMINS W/ FOLIC ACID TABLET (FP) PO SCH (10:35)
[2022-06-18] MEDS: LACTULOSE 20 GM/30 ML UDC (FOR ORAL USE ONLY) PO SCH ×4 (10:35→22:23)
[2022-06-18] MEDS: PATIENT'S OWN MEDICATION (NON-FORMULARY) (Dorzolamide Hcl/Timolol Maleat [Cosopt Eye Drops OU SCH ×2 (10:36→22:23)
[2022-06-18] MEDS: THIAMINE HCL 100 MG TABLET (FP) PO SCH (22:22)
[2022-06-18] MEDS: LATANOPROST 0.005% OPHTH SOLN 2.5ML BOTTLE OU SCH (22:22)
[2022-06-18] MEDS: QUEtiapine FUMARATE 50 MG TABLET PO SCH (22:23)
[2022-06-18] MEDS: MELATONIN 5 MG TABLETS PO SCH (22:23)
[2022-06-19] MEDS: LORazepam 1 MG TABLET PO SCH ×4 (05:26→22:08)
[2022-06-19] MEDS: PRENATAL VITAMINS W/ FOLIC ACID TABLET (FP) PO SCH (10:24)
[2022-06-19] MEDS: LACTULOSE 20 GM/30 ML UDC (FOR ORAL USE ONLY) PO SCH ×4 (10:24→22:08)
[2022-06-19] MEDS: PATIENT'S OWN MEDICATION (NON-FORMULARY) (Dorzolamide Hcl/Timolol Maleat [Cosopt Eye Drops OU SCH ×2 (10:24→22:08)
[2022-06-19] MEDS: THIAMINE HCL 100 MG TABLET (FP) PO SCH (22:08)
[2022-06-19] MEDS: QUEtiapine FUMARATE 50 MG TABLET PO SCH (22:08)
[2022-06-19] MEDS: LATANOPROST 0.005% OPHTH SOLN 2.5ML BOTTLE OU SCH (22:08)
[2022-06-19] MEDS: MELATONIN 5 MG TABLETS PO SCH (22:08)
[2022-06-20] MEDS ORDERED: LORazepam 0.5 MG TABLET PO PRN
[2022-06-20] MEDS: LORazepam 0.5 MG TABLET PO SCH ×4 (05:30→22:10)
[2022-06-20] MEDS: PRENATAL VITAMINS W/ FOLIC ACID TABLET (FP) PO SCH (10:11)
[2022-06-20] MEDS: PATIENT'S OWN MEDICATION (NON-FORMULARY) (Dorzolamide Hcl/Timolol Maleat [Cosopt Eye Drops OU SCH ×2 (10:11→22:08)
[2022-06-20] MEDS: LACTULOSE 20 GM/30 ML UDC (FOR ORAL USE ONLY) PO SCH ×4 (10:11→22:08)
[2022-06-20] MEDS: LATANOPROST 0.005% OPHTH SOLN 2.5ML BOTTLE OU SCH (22:08)
[2022-06-20] MEDS: QUEtiapine FUMARATE 50 MG TABLET PO SCH (22:09)
[2022-06-20] MEDS: THIAMINE HCL 100 MG TABLET (FP) PO SCH (22:09)
[2022-06-20] MEDS: MELATONIN 5 MG TABLETS PO SCH (22:09)
[2022-06-21] MEDS ORDERED: LORazepam 0.5 MG TABLET PO ONE (05:00)
[2022-06-21 09:24] VITALS: BP 121/70; PULSE 80; RESP 18; TEMP 97.5
[2022-06-21] MEDS: PRENATAL VITAMINS W/ FOLIC ACID TABLET (FP) PO SCH (10:09)
[2022-06-21] MEDS: LACTULOSE 20 GM/30 ML UDC (FOR ORAL USE ONLY) PO SCH (10:09)
[2022-06-21] MEDS: PATIENT'S OWN MEDICATION (NON-FORMULARY) (Dorzolamide Hcl/Timolol Maleat [Cosopt Eye Drops OU SCH (10:10)
== END 2022-06-21 12:27 | disposition other institution (70) | DRG 774 ==
LOC: YASAS 11:49 → Y3N 14:25
PROVIDERS: ADMIT Allergy & Immunology; ATTEND Surgery
PROC: HZ2ZZZZ Detoxification Services for Substance Abuse Treatment (ICD-10-PCS; principal; 2022-06-17)
DX: F10.230 Alcohol dependence with withdrawal, uncomplicated (principal); F14.20 Cocaine dependence, uncomplicated; F41.9 Anxiety disorder, unspecified; F19.282 Other psychoactive substance dependence with psychoactive substance-induced sleep disorder; F19.280 Other psychoactive substance dependence with psychoactive substance-induced anxiety disorder; G47.00 Insomnia, unspecified; H40.1130 Primary open-angle glaucoma, bilateral, stage unspecified; K21.9 Gastro-esophageal reflux disease without esophagitis; R79.89 Other specified abnormal findings of blood chemistry; Z86.11 Personal history of tuberculosis
CPT/HCPCS: 36415; 80053; 82140; 85027; 86780; C9803-CS; U0003; U0005

== ENCOUNTER 2022-08-20 13:55 | Inpatient (IN) | payer OTHER ==
[2022-08-20 14:57] VITALS: BMI 27.7
[2022-08-20] MEDS ORDERED: BENZONATATE 200 MG CAPSULE PO PRN (15:34)
[2022-08-20] MEDS ORDERED: LOPERAMIDE HCL 2 MG CAPSULE PO PRN (15:34)
[2022-08-20] MEDS ORDERED: ONDANSETRON *ODT* 4 MG TABLET SL PRN (15:34)
[2022-08-20] MEDS ORDERED: guaiFENesin 600 MG TABLET.ER (FP) PO PRN (15:34)
[2022-08-20] MEDS ORDERED: BENZOCAINE/MENTHOL (CHLORASEPTIC ) LOZENGE MM PRN (15:34)
[2022-08-20] MEDS ORDERED: BISMUTH SUBSALICYLATE 524 MG/30 ML PO PRN (15:34)
[2022-08-20] MEDS ORDERED: MAGNESIUM HYDROX 2400MG/30ML ORAL SUSPENSION 30 ML CUP PO PRN (15:34)
[2022-08-20] MEDS ORDERED: DICYCLOMINE HCL 10 MG CAPSULE PO PRN (15:34)
[2022-08-20] MEDS ORDERED: IBUPROFEN 400 MG TABLET (FP) PO PRN (15:34)
[2022-08-20] MEDS ORDERED: POLYETHYLENE GLYCOL (HEALTHYLAX) 3350 17 GM PACKET PO PRN (15:34)
[2022-08-20] MEDS ORDERED: ACETAMINOPHEN 325 MG TABLET (FP) PO PRN (15:34)
[2022-08-20] MEDS ORDERED: IBUPROFEN 600 MG TABLET (FP) PO ONE (17:25)
[2022-08-20] MEDS ORDERED: diazePAM 5 MG TABLET ONE (17:25)
[2022-08-20] MEDS: diazePAM 5 MG TABLET PO SCH ×2 (17:29→23:04)
[2022-08-20] MEDS: IBUPROFEN 600 MG TABLET (FP) PO PRN (17:30)
[2022-08-20] MEDS: hydrOXYzine PAMOATE 25 MG CAPSULE (FP) PO PRN (18:25)
[2022-08-20] MEDS: diazePAM 5 MG TABLET PO PRN (20:07)
[2022-08-20] MEDS: MELATONIN 5 MG TABLETS PO SCH (23:04)
[2022-08-20] MEDS: THIAMINE HCL 100 MG TABLET (FP) PO SCH (23:04)
[2022-08-21] MEDS: diazePAM 5 MG TABLET PO SCH ×4 (05:54→22:31)
[2022-08-21] MEDS: IBUPROFEN 600 MG TABLET (FP) PO PRN ×2 (05:55→19:22)
[2022-08-21 09:22] LABS: HEMATOCRIT 40.5 % (35.4-49); HEMOGLOBIN 13.3 GM/dL (11.7-16.9); MCH 29.7 pg (25.7-33.7); MCHC 32.9 g/dl (32.0-35.9); MEAN CELL VOLUME 90.1 fl (80-96); MEAN PLT VOLUME 9.8 fl (7.5-11.1); PLATELET COUNT 196 10^3/uL (134-434); RBC 4.49 M/mm3 (4.00-5.60); RDW 13.5 % (11.9-15.9); WHITE BLOOD COUNT 6.7 K/mm3 (4.0-10.0)
[2022-08-21] MEDS: METHOCARBAMOL 500 MG TABLET PO PRN (10:30)
[2022-08-21] MEDS: hydrOXYzine PAMOATE 25 MG CAPSULE (FP) PO PRN (10:30)
[2022-08-21 10:34] LABS: POTASSIUM 4.2 mmol/L (3.5-5.1)
[2022-08-21 10:41] LABS: ALBUMIN 3.6 g/dl (3.4-5.0); CALCIUM 9.4 mg/dL (8.5-10.1)
[2022-08-21 10:42] LABS: BLOOD UREA NITROGEN 9.2 mg/dL (7-18)
[2022-08-21 10:45] LABS: CREATININE 0.9 mg/dL (0.55-1.3)
[2022-08-21 10:46] LABS: BILIRUBIN,TOTAL 0.5 mg/dL (0.2-1); TOT PROT 6.8 g/dl (6.4-8.2)
[2022-08-21] MEDS: MAG HYDROX/AL HYDROX/SIMETH 30 ML UNIT-DOSE CUP PO PRN ×2 (11:20→18:06)
[2022-08-21] MEDS: diazePAM 5 MG TABLET PO PRN (19:19)
[2022-08-21] MEDS ORDERED: QUEtiapine FUMARATE 50 MG TABLET PO ONE (22:00)
[2022-08-21] MEDS: THIAMINE HCL 100 MG TABLET (FP) PO SCH (22:28)
[2022-08-21] MEDS: MELATONIN 5 MG TABLETS PO SCH (22:28)
[2022-08-21] MEDS: TIMOLOL 0.5% OPHTHALMIC SOL 5 ML BOTTLE OU SCH (22:33)
[2022-08-21] MEDS: LATANOPROST 0.005% OPHTH SOLN 2.5ML BOTTLE OU SCH (22:34)
[2022-08-22] MEDS: diazePAM 5 MG TABLET PO SCH ×3 (05:41→22:58)
[2022-08-22] MEDS: diazePAM 5 MG TABLET PO PRN ×2 (10:06→17:36)
[2022-08-22] MEDS: METHOCARBAMOL 500 MG TABLET PO PRN ×2 (10:07→17:36)
[2022-08-22] MEDS: hydrOXYzine PAMOATE 25 MG CAPSULE (FP) PO PRN ×2 (10:07→22:57)
[2022-08-22] MEDS: IBUPROFEN 600 MG TABLET (FP) PO PRN (10:12)
[2022-08-22] MEDS: TIMOLOL 0.5% OPHTHALMIC SOL 5 ML BOTTLE OU SCH ×2 (14:27→22:54)
[2022-08-22] MEDS ORDERED: PATIENT'S OWN MEDICATION (NON-FORMULARY) (Dorzolamide Hcl/Timolol Maleat [Cosopt Eye Drops OU SCH (17:00)
[2022-08-22] MEDS ORDERED: DORZOLAMIDE 2% HCL OPHTHALMIC SOLUTION 10 ML BOTTLE OU SCH (17:00)
[2022-08-22] MEDS ORDERED: TIMOLOL 0.5% OPHTHALMIC SOL 5 ML BOTTLE OU SCH (17:00)
[2022-08-22] MEDS: MAG HYDROX/AL HYDROX/SIMETH 30 ML UNIT-DOSE CUP PO PRN (17:36)
[2022-08-22] MEDS: DORZOLAMIDE 2% HCL OPHTHALMIC SOLUTION 10 ML BOTTLE OU SCH (17:38)
[2022-08-22] MEDS ORDERED: QUEtiapine FUMARATE 50 MG TABLET PO PRN (22:00)
[2022-08-22] MEDS: LATANOPROST 0.005% OPHTH SOLN 2.5ML BOTTLE OU SCH (22:54)
[2022-08-22] MEDS: THIAMINE HCL 100 MG TABLET (FP) PO SCH (22:54)
[2022-08-23] MEDS: DORZOLAMIDE 2% HCL OPHTHALMIC SOLUTION 10 ML BOTTLE OU SCH ×3 (06:32→17:53)
[2022-08-23] MEDS: diazePAM 5 MG TABLET PO SCH ×2 (06:42→17:51)
[2022-08-23] MEDS: TIMOLOL 0.5% OPHTHALMIC SOL 5 ML BOTTLE OU SCH (10:04)
[2022-08-23] MEDS: diazePAM 5 MG TABLET PO PRN (10:07)
[2022-08-23] MEDS: hydrOXYzine PAMOATE 25 MG CAPSULE (FP) PO PRN ×2 (10:10→17:55)
[2022-08-23 13:12] VITALS: RESP 18; TEMP 97.3
[2022-08-23 17:59] VITALS: BP 131/81; PULSE 86
[2022-08-24] MEDS ORDERED: diazePAM 5 MG TABLET PO ONE (06:00)
== END 2022-08-23 19:30 | disposition other institution (70) | DRG 774 ==
LOC: YASAS 13:55 → Y6N 17:04
PROVIDERS: ADMIT Allergy & Immunology; ATTEND Surgery
PROC: HZ2ZZZZ Detoxification Services for Substance Abuse Treatment (ICD-10-PCS; principal; 2022-08-20)
DX: F10.230 Alcohol dependence with withdrawal, uncomplicated (principal); F14.20 Cocaine dependence, uncomplicated; F17.210 Nicotine dependence, cigarettes, uncomplicated; F19.282 Other psychoactive substance dependence with psychoactive substance-induced sleep disorder; H40.1130 Primary open-angle glaucoma, bilateral, stage unspecified; K21.9 Gastro-esophageal reflux disease without esophagitis; R63.4 Abnormal weight loss; Z68.27 Body mass index [BMI] 27.0-27.9, adult; Z86.11 Personal history of tuberculosis; Z86.59 Personal history of other mental and behavioral disorders
CPT/HCPCS: 36415; 80053; 83036; 85027; 86780; 87635

== ENCOUNTER 2022-08-23 19:32 | Inpatient (IN) | payer OTHER ==
[~2022-08-23 19:32] MED LIST: ACETAMINOPHEN 325 MG TABLET (FP) PO PRN; AMMONIUM LACTATE 12% LOTION 225 GM BOTTLE TP PRN; BENZOCAINE/MENTHOL (CHLORASEPTIC ) LOZENGE MM PRN; BENZONATATE 200 MG CAPSULE PO PRN; COLLOIDAL OATMEAL 1 BAR EACH TP PRN; IBUPROFEN 400 MG TABLET (FP) PO PRN; IBUPROFEN 600 MG TABLET (FP) PO PRN; LOPERAMIDE HCL 2 MG CAPSULE PO PRN; MAG HYDROX/AL HYDROX/SIMETH 30 ML UNIT-DOSE CUP PO PRN; MAGNESIUM HYDROX 2400MG/30ML ORAL SUSPENSION 30 ML CUP PO PRN; METHOCARBAMOL 500 MG TABLET PO PRN; NICOTINE 10 MG CARTRIDGE (INHALER) IH PRN; NICOTINE 14 MG/24 HOURS TOPICAL PATCH TD PRN; NICOTINE POLACRILEX 2 MG GUM BUC PRN; POLYETHYLENE GLYCOL (HEALTHYLAX) 3350 17 GM PACKET PO PRN; guaiFENesin 600 MG TABLET.ER (FP) PO PRN; hydrOXYzine PAMOATE 25 MG CAPSULE (FP) PO PRN
[2022-08-23] MEDS: MELATONIN 5 MG TABLETS PO SCH (21:51)
[2022-08-23] MEDS: QUEtiapine FUMARATE 50 MG TABLET PO PRN (21:51)
[2022-08-23] MEDS: THIAMINE HCL 100 MG TABLET (FP) PO SCH (21:51)
[2022-08-23] MEDS: LATANOPROST 0.005% OPHTH SOLN 2.5ML BOTTLE OU SCH (21:52)
[2022-08-23] MEDS: DORZOLAMIDE 2% HCL OPHTHALMIC SOLUTION 10 ML BOTTLE OU SCH (21:52)
[2022-08-23] MEDS ORDERED: TIMOLOL 0.5% OPHTHALMIC SOL 5 ML BOTTLE OU SCH (22:00)
[2022-08-24] MEDS: DORZOLAMIDE 2% HCL OPHTHALMIC SOLUTION 10 ML BOTTLE OU SCH ×2 (05:50→18:56)
[2022-08-24 07:22] VITALS: RESP 18
[2022-08-24] MEDS: PRENATAL VITAMINS W/ FOLIC ACID TABLET (FP) PO SCH (09:53)
[2022-08-24] MEDS ORDERED: TIMOLOL 0.5% OPHTHALMIC SOL 5 ML BOTTLE OU SCH (10:00)
[2022-08-24] MEDS ORDERED: DORZOLAMIDE 2% HCL OPHTHALMIC SOLUTION 10 ML BOTTLE OU SCH ×2 (10:00→16:00)
[2022-08-24] MEDS: TIMOLOL 0.5% OPHTHALMIC SOL 5 ML BOTTLE OU SCH (18:57)
[2022-08-24] MEDS: LATANOPROST 0.005% OPHTH SOLN 2.5ML BOTTLE OU SCH (21:31)
[2022-08-24] MEDS: MELATONIN 5 MG TABLETS PO SCH (21:31)
[2022-08-24] MEDS: THIAMINE HCL 100 MG TABLET (FP) PO SCH (21:31)
[2022-08-24] MEDS: QUEtiapine FUMARATE 50 MG TABLET PO PRN (21:33)
[2022-08-25] MEDS: DORZOLAMIDE 2% HCL OPHTHALMIC SOLUTION 10 ML BOTTLE OU SCH ×2 (05:58→18:57)
[2022-08-25] MEDS: TIMOLOL 0.5% OPHTHALMIC SOL 5 ML BOTTLE OU SCH ×2 (05:58→18:57)
[2022-08-25] MEDS: PRENATAL VITAMINS W/ FOLIC ACID TABLET (FP) PO SCH (10:18)
[2022-08-25] MEDS: LATANOPROST 0.005% OPHTH SOLN 2.5ML BOTTLE OU SCH (21:04)
[2022-08-25] MEDS: MELATONIN 5 MG TABLETS PO SCH (21:04)
[2022-08-25] MEDS: QUEtiapine FUMARATE 50 MG TABLET PO PRN (21:04)
[2022-08-25] MEDS: THIAMINE HCL 100 MG TABLET (FP) PO SCH (21:04)
[2022-08-26] MEDS: TIMOLOL 0.5% OPHTHALMIC SOL 5 ML BOTTLE OU SCH ×2 (06:45→17:40)
[2022-08-26] MEDS: DORZOLAMIDE 2% HCL OPHTHALMIC SOLUTION 10 ML BOTTLE OU SCH ×2 (06:45→17:41)
[2022-08-26] MEDS: PRENATAL VITAMINS W/ FOLIC ACID TABLET (FP) PO SCH (09:57)
[2022-08-26] MEDS ORDERED: PANTOPRAZOLE 20 MG TABLET PO PRN (11:18)
[2022-08-26 16:41] LABS: HIV INTERPRETATION NEGATIVE (NEGATIVE)
[2022-08-26] MEDS: MELATONIN 5 MG TABLETS PO SCH (21:39)
[2022-08-26] MEDS: THIAMINE HCL 100 MG TABLET (FP) PO SCH (21:39)
[2022-08-26] MEDS: QUEtiapine FUMARATE 50 MG TABLET PO PRN (21:40)
[2022-08-26] MEDS: LATANOPROST 0.005% OPHTH SOLN 2.5ML BOTTLE OU SCH (21:40)
[2022-08-26 22:52] VITALS: BMI 27.7
[2022-08-27] MEDS: TIMOLOL 0.5% OPHTHALMIC SOL 5 ML BOTTLE OU SCH (06:10)
[2022-08-27] MEDS: DORZOLAMIDE 2% HCL OPHTHALMIC SOLUTION 10 ML BOTTLE OU SCH (06:10)
[2022-08-27 07:05] VITALS: TEMP 98
[2022-08-27 09:08] VITALS: BP 128/73; PULSE 86
[2022-08-27] MEDS: PRENATAL VITAMINS W/ FOLIC ACID TABLET (FP) PO SCH (10:14)
== END 2022-08-27 10:38 | disposition home or self-care (01) | DRG 772 ==
LOC: YASAS 19:32 → Y3W 19:33
PROVIDERS: ADMIT Allergy & Immunology; ATTEND Psychiatry & Neurology Pain Medicine
PROC: HZ42ZZZ Group Counseling for Substance Abuse Treatment, Cognitive-Behavioral (ICD-10-PCS; principal; 2022-08-23)
DX: F10.20 Alcohol dependence, uncomplicated (principal); F14.20 Cocaine dependence, uncomplicated; F41.9 Anxiety disorder, unspecified; F32.A Depression, unspecified; G47.00 Insomnia, unspecified; H40.1130 Primary open-angle glaucoma, bilateral, stage unspecified; Z72.0 Tobacco use; Z86.11 Personal history of tuberculosis; Z91.011 Allergy to milk products
CPT/HCPCS: 36415; 87389

== ENCOUNTER 2022-10-20 13:21 | Inpatient (IN) | payer OTHER ==
[2022-10-20 13:37] VITALS: BMI 29.5
[2022-10-20] MEDS ORDERED: DICYCLOMINE HCL 10 MG CAPSULE PO PRN (16:32)
[2022-10-20] MEDS ORDERED: ONDANSETRON *ODT* 4 MG TABLET SL PRN (16:32)
[2022-10-20] MEDS ORDERED: BISMUTH SUBSALICYLATE 524 MG/30 ML PO PRN (16:32)
[2022-10-20] MEDS ORDERED: NALOXONE HCL (KLOXXADO) 8 MG SPRAY NS PRN (16:32)
[2022-10-20] MEDS ORDERED: MAG HYDROX/AL HYDROX/SIMETH 30 ML UNIT-DOSE CUP PO PRN (16:32)
[2022-10-20] MEDS ORDERED: BENZOCAINE/MENTHOL (CHLORASEPTIC ) LOZENGE MM PRN (16:32)
[2022-10-20] MEDS ORDERED: guaiFENesin 600 MG TABLET.ER (FP) PO PRN (16:32)
[2022-10-20] MEDS ORDERED: POLYETHYLENE GLYCOL (HEALTHYLAX) 3350 17 GM PACKET PO PRN (16:32)
[2022-10-20] MEDS ORDERED: LOPERAMIDE HCL 2 MG CAPSULE PO PRN (16:32)
[2022-10-20] MEDS ORDERED: MAGNESIUM HYDROX 2400MG/30ML ORAL SUSPENSION 30 ML CUP PO PRN (16:32)
[2022-10-20] MEDS ORDERED: BENZONATATE 200 MG CAPSULE PO PRN (16:32)
[2022-10-20] MEDS ORDERED: IBUPROFEN 400 MG TABLET (FP) PO PRN (16:32)
[2022-10-20] MEDS ORDERED: ACETAMINOPHEN 325 MG TABLET (FP) PO PRN (16:32)
[2022-10-20] MEDS ORDERED: NALOXONE HCL 0.4 MG/ML VIAL IM PRN (16:32)
[2022-10-20] MEDS: TIMOLOL 0.5% OPHTHALMIC SOL 5 ML BOTTLE OU SCH (20:05)
[2022-10-20] MEDS: DORZOLAMIDE 2% HCL OPHTHALMIC SOLUTION 10 ML BOTTLE OU SCH (20:06)
[2022-10-20] MEDS: THIAMINE HCL 100 MG TABLET (FP) PO SCH (22:22)
[2022-10-20] MEDS: MELATONIN 5 MG TABLETS PO SCH (22:22)
[2022-10-20] MEDS: IBUPROFEN 600 MG TABLET (FP) PO PRN (22:23)
[2022-10-20] MEDS: hydrOXYzine PAMOATE 25 MG CAPSULE (FP) PO PRN (22:23)
[2022-10-20] MEDS: LATANOPROST 0.005% OPHTH SOLN 2.5ML BOTTLE OU SCH (23:20)
[2022-10-21] MEDS: DORZOLAMIDE 2% HCL OPHTHALMIC SOLUTION 10 ML BOTTLE OU SCH ×3 (05:15→19:34)
[2022-10-21] MEDS: TIMOLOL 0.5% OPHTHALMIC SOL 5 ML BOTTLE OU SCH ×3 (05:15→19:34)
[2022-10-21] MEDS ORDERED: LORazepam 1 MG TABLET PO PRN (10:24)
[2022-10-21] MEDS: PRENATAL VITAMINS W/ FOLIC ACID TABLET (FP) PO SCH (10:26)
[2022-10-21] MEDS: IBUPROFEN 600 MG TABLET (FP) PO PRN (10:26)
[2022-10-21] MEDS: PANTOPRAZOLE 20 MG TABLET PO SCH (10:26)
[2022-10-21] MEDS: hydrOXYzine PAMOATE 25 MG CAPSULE (FP) PO PRN (10:26)
[2022-10-21] MEDS: METHOCARBAMOL 500 MG TABLET PO PRN (10:26)
[2022-10-21] MEDS: LORazepam 1 MG TABLET PO SCH ×3 (10:53→22:36)
[2022-10-21 11:35] LABS: HEMATOCRIT 43.1 % (35.4-49); HEMOGLOBIN 13.6 GM/dL (11.7-16.9); MCH 28.7 pg (25.7-33.7); MCHC 31.6 g/dl (32.0-35.9); MEAN PLT VOLUME 9.7 fl (7.5-11.1); PLATELET COUNT 238 10^3/uL (134-434); POTASSIUM 3.7 mmol/L (3.5-5.1); RBC 4.74 M/mm3 (4.00-5.60); RDW 13.2 % (11.9-15.9); WHITE BLOOD COUNT 7.4 K/mm3 (4.0-10.0)
[2022-10-21 11:44] LABS: CALCIUM 9.2 mg/dL (8.5-10.1)
[2022-10-21 11:45] LABS: ALBUMIN 3.2 g/dl (3.4-5.0); BLOOD UREA NITROGEN 11.5 mg/dL (7-18)
[2022-10-21 11:48] LABS: CREATININE 1.1 mg/dL (0.55-1.3)
[2022-10-21 11:50] LABS: BILIRUBIN,TOTAL 0.6 mg/dL (0.2-1); TOT PROT 6.9 g/dl (6.4-8.2)
[2022-10-21] MEDS ORDERED: SUVOREXANT 10 MG TABLET PO PRN (22:00)
[2022-10-21] MEDS: THIAMINE HCL 100 MG TABLET (FP) PO SCH (22:36)
[2022-10-21] MEDS: MELATONIN 5 MG TABLETS PO SCH (22:36)
[2022-10-21] MEDS: LATANOPROST 0.005% OPHTH SOLN 2.5ML BOTTLE OU SCH (22:37)
[2022-10-22] MEDS: LORazepam 0.5 MG TABLET PO SCH ×4 (05:57→22:24)
[2022-10-22] MEDS: TIMOLOL 0.5% OPHTHALMIC SOL 5 ML BOTTLE OU SCH ×3 (05:58→19:00)
[2022-10-22] MEDS: DORZOLAMIDE 2% HCL OPHTHALMIC SOLUTION 10 ML BOTTLE OU SCH ×3 (05:58→19:00)
[2022-10-22] MEDS: hydrOXYzine PAMOATE 25 MG CAPSULE (FP) PO PRN (10:15)
[2022-10-22] MEDS: PRENATAL VITAMINS W/ FOLIC ACID TABLET (FP) PO SCH (10:15)
[2022-10-22] MEDS: PANTOPRAZOLE 20 MG TABLET PO SCH (10:15)
[2022-10-22] MEDS: METHOCARBAMOL 500 MG TABLET PO PRN (10:16)
[2022-10-22] MEDS: MELATONIN 5 MG TABLETS PO SCH (22:24)
[2022-10-22] MEDS: LATANOPROST 0.005% OPHTH SOLN 2.5ML BOTTLE OU SCH (22:25)
[2022-10-22] MEDS: THIAMINE HCL 100 MG TABLET (FP) PO SCH (22:25)
[2022-10-23] MEDS ORDERED: LORazepam 0.5 MG TABLET PO ONE (05:00)
[2022-10-23] MEDS: DORZOLAMIDE 2% HCL OPHTHALMIC SOLUTION 10 ML BOTTLE OU SCH (05:25)
[2022-10-23] MEDS: TIMOLOL 0.5% OPHTHALMIC SOL 5 ML BOTTLE OU SCH (05:26)
[2022-10-23] MEDS: PRENATAL VITAMINS W/ FOLIC ACID TABLET (FP) PO SCH (10:48)
[2022-10-23] MEDS: PANTOPRAZOLE 20 MG TABLET PO SCH (10:48)
[2022-10-23 11:10] VITALS: BP 142/75; PULSE 66; RESP 18; TEMP 96.9
== END 2022-10-23 11:46 | disposition home or self-care (01) | DRG 774 ==
LOC: YASAS 13:21 → Y6N 17:48
PROVIDERS: ADMIT Allergy & Immunology; ATTEND Surgery
PROC: HZ2ZZZZ Detoxification Services for Substance Abuse Treatment (ICD-10-PCS; principal; 2022-10-20)
DX: F10.230 Alcohol dependence with withdrawal, uncomplicated (principal); F14.20 Cocaine dependence, uncomplicated; F41.9 Anxiety disorder, unspecified; F19.982 Other psychoactive substance use, unspecified with psychoactive substance-induced sleep disorder; F19.94 Other psychoactive substance use, unspecified with psychoactive substance-induced mood disorder; F19.980 Other psychoactive substance use, unspecified with psychoactive substance-induced anxiety disorder; K21.9 Gastro-esophageal reflux disease without esophagitis; H40.1130 Primary open-angle glaucoma, bilateral, stage unspecified; Z87.891 Personal history of nicotine dependence; Z56.0 Unemployment, unspecified
CPT/HCPCS: 36415; 80053; 80305; 85027; 86780; 87635

== ENCOUNTER 2023-04-17 11:20 | Inpatient (IN) | payer OTHER ==
[2023-04-17 11:57] VITALS: BMI 27.2
[2023-04-17] MEDS ORDERED: PANTOPRAZOLE 20 MG TABLET PO SCH (12:15)
[2023-04-17] MEDS ORDERED: ACETAMINOPHEN 325 MG TABLET (FP) PO PRN (12:23)
[2023-04-17] MEDS ORDERED: IBUPROFEN 400 MG TABLET (FP) PO PRN (12:23)
[2023-04-17] MEDS ORDERED: METHOCARBAMOL 500 MG TABLET PO PRN (12:23)
[2023-04-17] MEDS ORDERED: MAG HYDROX/AL HYDROX/SIMETH 30 ML UNIT-DOSE CUP PO PRN (12:23)
[2023-04-17] MEDS ORDERED: guaiFENesin 600 MG TABLET.ER (FP) PO PRN (12:23)
[2023-04-17] MEDS ORDERED: BENZONATATE 200 MG CAPSULE PO PRN (12:23)
[2023-04-17] MEDS ORDERED: ONDANSETRON *ODT* 4 MG TABLET SL PRN (12:23)
[2023-04-17] MEDS ORDERED: BISMUTH SUBSALICYLATE 524 MG/30 ML PO PRN (12:23)
[2023-04-17] MEDS ORDERED: POLYETHYLENE GLYCOL (HEALTHYLAX) 3350 17 GM PACKET PO PRN (12:23)
[2023-04-17] MEDS ORDERED: LOPERAMIDE HCL 2 MG CAPSULE PO PRN (12:23)
[2023-04-17] MEDS ORDERED: BENZOCAINE/MENTHOL (CHLORASEPTIC ) LOZENGE MM PRN (12:23)
[2023-04-17] MEDS ORDERED: P-EPHED 60MG/TRIPROLIDI 2.5MG TABLET PO PRN (12:23)
[2023-04-17] MEDS ORDERED: DICYCLOMINE HCL 10 MG CAPSULE PO PRN (12:23)
[2023-04-17] MEDS ORDERED: MAGNESIUM HYDROX 2400MG/30ML ORAL SUSPENSION 30 ML CUP PO PRN (12:23)
[2023-04-17] MEDS: TIMOLOL 0.5% OPHTHALMIC SOL 5 ML BOTTLE OU SCH ×2 (14:38→22:25)
[2023-04-17] MEDS: DORZOLAMIDE 2% HCL OPHTHALMIC SOLUTION 10 ML BOTTLE OU SCH ×2 (14:39→22:26)
[2023-04-17] MEDS ORDERED: diazePAM 5 MG TABLET PO PRN (14:46)
[2023-04-17] MEDS: diazePAM 5 MG TABLET PO SCH ×2 (17:08→22:27)
[2023-04-17] MEDS: LATANOPROST 0.005% OPHTH SOLN 2.5ML BOTTLE OU SCH (22:25)
[2023-04-17] MEDS: MELATONIN 5 MG TABLETS PO SCH (22:26)
[2023-04-17] MEDS: THIAMINE HCL 100 MG TABLET (FP) PO SCH (22:26)
[2023-04-17] MEDS: IBUPROFEN 600 MG TABLET (FP) PO PRN (22:28)
[2023-04-17] MEDS: QUEtiapine FUMARATE 50 MG TABLET PO PRN (22:28)
[2023-04-18] MEDS: diazePAM 5 MG TABLET PO SCH ×4 (05:40→22:12)
[2023-04-18] MEDS: DORZOLAMIDE 2% HCL OPHTHALMIC SOLUTION 10 ML BOTTLE OU SCH ×3 (05:41→22:11)
[2023-04-18] MEDS: TIMOLOL 0.5% OPHTHALMIC SOL 5 ML BOTTLE OU SCH ×3 (05:41→22:12)
[2023-04-18] MEDS: PRENATAL VITAMINS W/ FOLIC ACID TABLET (FP) PO SCH (10:04)
[2023-04-18] MEDS: PANTOPRAZOLE 20 MG TABLET PO SCH (10:04)
[2023-04-18 10:14] LABS: HEMOGLOBIN 13.1 GM/dL (11.7-16.9); MCH 29.7 pg (25.7-33.7); MEAN CELL VOLUME 92.9 fl (80-96); MEAN PLT VOLUME 9.7 fl (7.5-11.1); PLATELET COUNT 200 10^3/uL (134-434); RBC 4.41 M/mm3 (4.00-5.60); RDW 13.2 % (11.9-15.9); WHITE BLOOD COUNT 7.8 K/mm3 (4.0-10.0)
[2023-04-18 10:21] LABS: POTASSIUM 3.8 mmol/L (3.5-5.1)
[2023-04-18 10:30] LABS: ALBUMIN 2.7 g/dl (3.4-5.0); BLOOD UREA NITROGEN 12.9 mg/dL (7-18); CALCIUM 8.4 mg/dL (8.5-10.1)
[2023-04-18 10:33] LABS: CREATININE 1.2 mg/dL (0.55-1.3)
[2023-04-18 10:34] LABS: BILIRUBIN,TOTAL 0.4 mg/dL (0.2-1); TOT PROT 5.2 g/dl (6.4-8.2)
[2023-04-18 10:46] LABS: SYPHILIS W/ RPR CONF NON-REACTIVE (NONREACTIVE)
[2023-04-18 11:15] LABS: HIV INTERPRETATION NEGATIVE (NEGATIVE)
[2023-04-18] MEDS: IBUPROFEN 600 MG TABLET (FP) PO PRN (12:15)
[2023-04-18] MEDS: LATANOPROST 0.005% OPHTH SOLN 2.5ML BOTTLE OU SCH (22:11)
[2023-04-18] MEDS: MELATONIN 5 MG TABLETS PO SCH (22:12)
[2023-04-18] MEDS: THIAMINE HCL 100 MG TABLET (FP) PO SCH (22:12)
[2023-04-18] MEDS: QUEtiapine FUMARATE 50 MG TABLET PO PRN (22:13)
[2023-04-19] MEDS: DORZOLAMIDE 2% HCL OPHTHALMIC SOLUTION 10 ML BOTTLE OU SCH (05:31)
[2023-04-19] MEDS: TIMOLOL 0.5% OPHTHALMIC SOL 5 ML BOTTLE OU SCH (05:31)
[2023-04-19] MEDS: IBUPROFEN 600 MG TABLET (FP) PO PRN (05:34)
[2023-04-19] MEDS ORDERED: diazePAM 5 MG TABLET PO SCH (06:00)
[2023-04-19 08:48] VITALS: BP 110/69; PULSE 66; RESP 17; TEMP 97.8
[2023-04-19] MEDS: PANTOPRAZOLE 20 MG TABLET PO SCH (10:23)
[2023-04-19] MEDS: PRENATAL VITAMINS W/ FOLIC ACID TABLET (FP) PO SCH (10:23)
[2023-04-19] MEDS ORDERED: FLU VACCINE (FLULAVAL) PF 60 MCG/0.5 ML SYRINGE 2023-2024 IM ONE (12:00)
[2023-04-20] MEDS ORDERED: diazePAM 5 MG TABLET PO SCH (06:00)
[2023-04-21] MEDS ORDERED: diazePAM 5 MG TABLET PO ONE (06:00)
== END 2023-04-19 10:54 | disposition left against medical advice (07) | DRG 770 ==
LOC: YASAS 11:20 → Y3N 13:25
PROVIDERS: ADMIT Allergy & Immunology; ATTEND Allergy & Immunology
PROC: HZ2ZZZZ Detoxification Services for Substance Abuse Treatment (ICD-10-PCS; principal; 2023-04-17)
DX: F10.230 Alcohol dependence with withdrawal, uncomplicated (principal); F14.10 Cocaine abuse, uncomplicated; F19.282 Other psychoactive substance dependence with psychoactive substance-induced sleep disorder; F41.9 Anxiety disorder, unspecified
CPT/HCPCS: 36415; 80053; 85027; 86780; 87389; 87635; 87811

== ENCOUNTER 2024-03-07 08:16 | Inpatient (IN) | payer OTHER ==
[2024-03-07 09:03] VITALS: BMI 28.1
[2024-03-07] MEDS ORDERED: POLYETHYLENE GLYCOL (HEALTHYLAX) 3350 17 GM PACKET PO PRN (10:05)
[2024-03-07] MEDS ORDERED: DICYCLOMINE HCL 10 MG CAPSULE PO PRN (10:05)
[2024-03-07] MEDS ORDERED: NALOXONE (NARCAN) HCL 4 MG/0.1 ML SPRAY NS PRN (10:05)
[2024-03-07] MEDS ORDERED: MAG HYDROX/AL HYDROX/SIMETH 30 ML UNIT-DOSE CUP PO PRN (10:05)
[2024-03-07] MEDS ORDERED: BENZONATATE 200 MG CAPSULE PO PRN (10:05)
[2024-03-07] MEDS ORDERED: LORazepam 1 MG TABLET PO PRN (10:05)
[2024-03-07] MEDS ORDERED: BISMUTH SUBSALICYLATE 524 MG/30 ML PO PRN (10:05)
[2024-03-07] MEDS ORDERED: LOPERAMIDE HCL 2 MG CAPSULE PO PRN (10:05)
[2024-03-07] MEDS ORDERED: IBUPROFEN 400 MG TABLET (FP) PO PRN (10:05)
[2024-03-07] MEDS ORDERED: ONDANSETRON *ODT* 4 MG TABLET SL PRN (10:05)
[2024-03-07] MEDS ORDERED: guaiFENesin 600 MG TABLET.ER (FP) PO PRN (10:05)
[2024-03-07] MEDS ORDERED: ACETAMINOPHEN 325 MG TABLET (FP) PO PRN (10:05)
[2024-03-07] MEDS ORDERED: IBUPROFEN 600 MG TABLET (FP) PO PRN (10:05)
[2024-03-07] MEDS ORDERED: MAGNESIUM HYDROX 2400MG/30ML ORAL SUSPENSION 30 ML CUP PO PRN (10:05)
[2024-03-07] MEDS ORDERED: BENZOCAINE/MENTHOL (CHLORASEPTIC ) LOZENGE MM PRN (10:05)
[2024-03-07] MEDS: LORazepam 2 MG TABLET PO SCH (12:07)
[2024-03-07] MEDS ORDERED: LORazepam 2 MG TABLET ONE (12:21)
[2024-03-07] MEDS: DORZOLAMIDE 2% HCL OPHTHALMIC SOLUTION 10 ML BOTTLE OU SCH (14:51)
[2024-03-07] MEDS: TIMOLOL 0.5% OPHTHALMIC SOL 5 ML BOTTLE OU SCH ×2 (14:53→22:21)
[2024-03-07] MEDS: QUEtiapine FUMARATE 50 MG TABLET PO SCH (22:20)
[2024-03-07] MEDS: TAMSULOSIN HCL 0.4 MG CAP PO SCH (22:21)
[2024-03-07] MEDS: THIAMINE 100 MG TABLET PO SCH (22:21)
[2024-03-07] MEDS: LATANOPROST 0.005% OPHTH SOLN 2.5ML BOTTLE OU SCH (22:22)
[2024-03-07] MEDS: MELATONIN 5 MG TABLETS PO SCH (22:22)
[2024-03-08] MEDS: PRENATAL VITAMINS W/ FOLIC ACID TABLET (FP) PO SCH (10:32)
[2024-03-08] MEDS: PANTOPRAZOLE 20 MG TABLET PO SCH (10:32)
[2024-03-08 11:14] LABS: POTASSIUM 3.9 mmol/L (3.5-5.1)
[2024-03-08 11:17] LABS: HEMATOCRIT 43.8 % (35.4-49); HEMOGLOBIN 14.1 GM/dL (11.7-16.9); MCH 28.8 pg (25.7-33.7); MCHC 32.2 g/dl (32.0-35.9); MEAN CELL VOLUME 89.6 fl (80-96); MEAN PLT VOLUME 9.3 fl (7.5-11.1); PLATELET COUNT 172 10^3/uL (134-434); RBC 4.88 M/mm3 (4.00-5.60); RDW 12.7 % (11.9-15.9); WHITE BLOOD COUNT 5.3 K/mm3 (4.0-10.0)
[2024-03-08 11:21] LABS: BLOOD UREA NITROGEN 10.6 mg/dL (7-18)
[2024-03-08 11:22] LABS: CALCIUM 9.3 mg/dL (8.5-10.1)
[2024-03-08 11:25] LABS: ALBUMIN 3.5 g/dl (3.4-5.0); CREATININE 1.1 mg/dL (0.55-1.3)
[2024-03-08 11:26] LABS: BILIRUBIN,TOTAL 0.7 mg/dL (0.2-1)
[2024-03-08 11:27] LABS: TOT PROT 6.3 g/dl (6.4-8.2)
[2024-03-08] MEDS: hydrOXYzine PAMOATE 25 MG CAPSULE (FP) PO PRN (23:28)
[2024-03-08] MEDS: METHOCARBAMOL 500 MG TABLET PO PRN (23:28)
[2024-03-09] MEDS: LORazepam 1 MG TABLET PO SCH (05:30)
[2024-03-10] MEDS ORDERED: LORazepam 0.5 MG TABLET PO PRN
[2024-03-10] MEDS: LORazepam 0.5 MG TABLET PO SCH (05:33)
[2024-03-11] MEDS: LORazepam 0.5 MG TABLET PO ONE (05:35)
[2024-03-11] MEDS: NALOXONE (NYS OPIOID OVERDOSE PROGRAM) 4 MG/0.1 ML SPRAY NS SCH (08:55)
[2024-03-12 06:35] VITALS: PULSE 69
[2024-03-12 09:34] VITALS: TEMP 98.1
[2024-03-12] MEDS ORDERED: HYDROCORTISONE 1% TOPICAL OINT 30 GM TUBE TP PRN (10:20)
[2024-03-12] MEDS: NALOXONE (NYS OPIOID OVERDOSE PROGRAM) 4 MG/0.1 ML SPRAY NS SCH (10:26)
[2024-03-12 13:06] VITALS: BP 125/78; RESP 16
== END 2024-03-12 15:17 | disposition other institution (70) | DRG 774 ==
LOC: YASAS 08:16 → Y3N 12:15
PROVIDERS: ADMIT Allergy & Immunology; ATTEND Surgery
PROC: HZ2ZZZZ Detoxification Services for Substance Abuse Treatment (ICD-10-PCS; principal; 2024-03-07)
DX: F10.230 Alcohol dependence with withdrawal, uncomplicated (principal); F14.20 Cocaine dependence, uncomplicated; F17.210 Nicotine dependence, cigarettes, uncomplicated; F19.24 Other psychoactive substance dependence with psychoactive substance-induced mood disorder; F32.A Depression, unspecified; F41.9 Anxiety disorder, unspecified; G47.00 Insomnia, unspecified; H40.1130 Primary open-angle glaucoma, bilateral, stage unspecified; K21.9 Gastro-esophageal reflux disease without esophagitis; N40.0 Benign prostatic hyperplasia without lower urinary tract symptoms
CPT/HCPCS: 36415; 71046-TC-FY; 80053; 80307; 85027; 86780; 93005; 93010

== ENCOUNTER 2024-03-12 15:17 | Inpatient (IN) | payer OTHER ==
[2024-03-12] MEDS ORDERED: guaiFENesin 600 MG TABLET.ER (FP) PO PRN (16:38)
[2024-03-12] MEDS ORDERED: hydrOXYzine PAMOATE 25 MG CAPSULE (FP) PO PRN (16:38)
[2024-03-12] MEDS ORDERED: IBUPROFEN 600 MG TABLET (FP) PO PRN (16:38)
[2024-03-12] MEDS ORDERED: METHOCARBAMOL 500 MG TABLET PO PRN (16:38)
[2024-03-12] MEDS ORDERED: ACETAMINOPHEN 325 MG TABLET (FP) PO PRN (16:38)
[2024-03-12] MEDS ORDERED: NALOXONE (NARCAN) HCL 4 MG/0.1 ML SPRAY NS PRN (16:38)
[2024-03-12] MEDS ORDERED: NALOXONE HCL 0.4 MG/ML VIAL IVPUSH PRN (16:38)
[2024-03-12] MEDS ORDERED: BENZOCAINE/MENTHOL (CHLORASEPTIC ) LOZENGE MM PRN (16:38)
[2024-03-12] MEDS ORDERED: NICOTINE POLACRILEX 2 MG LOZENGE BC PRN (16:38)
[2024-03-12] MEDS ORDERED: NICOTINE POLACRILEX 2 MG GUM BUC PRN (16:38)
[2024-03-12] MEDS ORDERED: IBUPROFEN 400 MG TABLET (FP) PO PRN (16:38)
[2024-03-12] MEDS ORDERED: MAG HYDROX/AL HYDROX/SIMETH 30 ML UNIT-DOSE CUP PO PRN (16:38)
[2024-03-12] MEDS ORDERED: MAGNESIUM HYDROX 2400MG/30ML ORAL SUSPENSION 30 ML CUP PO PRN (16:38)
[2024-03-12] MEDS ORDERED: BENZONATATE 200 MG CAPSULE PO PRN (16:38)
[2024-03-12] MEDS ORDERED: POLYETHYLENE GLYCOL (HEALTHYLAX) 3350 17 GM PACKET PO PRN (16:38)
[2024-03-12] MEDS ORDERED: LOPERAMIDE HCL 2 MG CAPSULE PO PRN (16:38)
[2024-03-12] MEDS: MELATONIN 5 MG TABLETS PO SCH (21:37)
[2024-03-12] MEDS: THIAMINE 100 MG TABLET PO SCH (21:37)
[2024-03-12] MEDS: DORZOLAMIDE 2% HCL OPHTHALMIC SOLUTION 10 ML BOTTLE OU SCH (21:39)
[2024-03-12] MEDS: QUEtiapine FUMARATE 50 MG TABLET PO SCH (21:40)
[2024-03-12] MEDS: TIMOLOL 0.5% OPHTHALMIC SOL 5 ML BOTTLE OU SCH (21:40)
[2024-03-12] MEDS: TAMSULOSIN HCL 0.4 MG CAP PO SCH (21:40)
[2024-03-12] MEDS: LATANOPROST 0.005% OPHTH SOLN 2.5ML BOTTLE OU SCH (21:40)
[2024-03-13] MEDS: PANTOPRAZOLE 20 MG TABLET PO SCH (07:11)
[2024-03-13] MEDS ORDERED: HYDROCORTISONE 0.5% TOPICAL OINTMENT TUBE TP PRN (10:31)
[2024-03-13] MEDS: PRENATAL VITAMINS W/ FOLIC ACID TABLET (FP) PO SCH (10:33)
[2024-03-13] MEDS: MIRTAZAPINE 15 MG TABLET (FP) PO SCH (21:21)
[2024-03-13] MEDS: QUEtiapine FUMARATE 50 MG TABLET PO PRN (21:23)
[2024-03-15] MEDS: HYDROCORTISONE 1% TOPICAL OINT 30 GM TUBE TP PRN (06:21)
[2024-03-15 09:09] VITALS: RESP 18
[2024-03-15] MEDS: TOLNAFTATE 1% POWDER 45 GM POW TP SCH (13:46)
[2024-03-16 06:58] VITALS: PULSE 69
[2024-03-17 06:33] VITALS: BP 116/70; TEMP 97.7
[2024-03-17] MEDS: NALOXONE (NYS OPIOID OVERDOSE PROGRAM) 4 MG/0.1 ML SPRAY NS SCH (09:00)
== END 2024-03-17 09:38 | disposition home or self-care (01) | DRG 772 ==
LOC: YASAS 15:17 → Y3E 15:19
PROVIDERS: ADMIT Psychiatry & Neurology Pain Medicine; ATTEND Psychiatry & Neurology Pain Medicine
PROC: HZ42ZZZ Group Counseling for Substance Abuse Treatment, Cognitive-Behavioral (ICD-10-PCS; principal; 2024-03-12)
DX: F10.20 Alcohol dependence, uncomplicated (principal); F14.20 Cocaine dependence, uncomplicated; F19.282 Other psychoactive substance dependence with psychoactive substance-induced sleep disorder; G47.00 Insomnia, unspecified; H40.1330 Pigmentary glaucoma, bilateral, stage unspecified; K21.9 Gastro-esophageal reflux disease without esophagitis; B35.3 Tinea pedis; N40.0 Benign prostatic hyperplasia without lower urinary tract symptoms; Z86.11 Personal history of tuberculosis; Z92.89 Personal history of other medical treatment

== ENCOUNTER 2024-11-13 18:04 | Inpatient (IN) | payer OTHER ==
[2024-11-13 18:34] VITALS: BMI 27.5
[2024-11-13] MEDS ORDERED: BISMUTH SUBSALICYLATE 524 MG/30 ML PO PRN (20:13)
[2024-11-13] MEDS ORDERED: BENZONATATE 200 MG CAPSULE PO PRN (20:13)
[2024-11-13] MEDS ORDERED: DICYCLOMINE HCL 10 MG CAPSULE PO PRN (20:13)
[2024-11-13] MEDS ORDERED: MAGNESIUM HYDROX 2400MG/30ML ORAL SUSPENSION 30 ML CUP PO PRN (20:13)
[2024-11-13] MEDS ORDERED: ACETAMINOPHEN 325 MG TABLET (FP) PO PRN (20:13)
[2024-11-13] MEDS ORDERED: BENZOCAINE/MENTHOL (CHLORASEPTIC ) LOZENGE MM PRN (20:13)
[2024-11-13] MEDS ORDERED: hydrOXYzine PAMOATE 25 MG CAPSULE (FP) PO PRN (20:13)
[2024-11-13] MEDS ORDERED: POLYETHYLENE GLYCOL (HEALTHYLAX) 3350 17 GM PACKET PO PRN (20:13)
[2024-11-13] MEDS ORDERED: NALOXONE (NARCAN) HCL 4 MG/0.1 ML SPRAY NS PRN (20:13)
[2024-11-13] MEDS ORDERED: LOPERAMIDE HCL 2 MG CAPSULE PO PRN (20:13)
[2024-11-13] MEDS ORDERED: guaiFENesin 600 MG TABLET.ER (FP) PO PRN (20:13)
[2024-11-13] MEDS ORDERED: IBUPROFEN 400 MG TABLET (FP) PO PRN (20:13)
[2024-11-13] MEDS ORDERED: ONDANSETRON *ODT* 4 MG TABLET SL PRN (20:13)
[2024-11-14] MEDS: THIAMINE 100 MG TABLET PO SCH (02:09)
[2024-11-14] MEDS: MELATONIN 5 MG TABLETS PO SCH (02:09)
[2024-11-14] MEDS ORDERED: IBUPROFEN 600 MG TABLET (FP) PO ONE (02:10)
[2024-11-14] MEDS: IBUPROFEN 600 MG TABLET (FP) PO PRN (02:11)
[2024-11-14] MEDS: NALTREXONE HCL 50 MG TABLET PO ONE (07:49)
[2024-11-14] MEDS: PANTOPRAZOLE 20 MG TABLET PO SCH (07:53)
[2024-11-14] MEDS: PRENATAL VITAMINS W/ FOLIC ACID TABLET (FP) PO SCH (09:54)
[2024-11-14 12:45] LABS: MCHC 30.9 g/dl (32.3-36.5); MEAN CELL VOLUME 92.2 fl (79.0-92.2); MEAN PLT VOLUME 11.0 fl (9.4-12.4); RDW 12.6 % (12.2-16.4)
[2024-11-14] MEDS: DORZOLAMIDE 2% HCL OPHTHALMIC SOLUTION 10 ML BOTTLE OU SCH (13:20)
[2024-11-14 13:39] LABS: GLUCOSE,RANDOM 126 mg/dL (74-106); TOT PROT 7.0 g/dl (6.4-8.2)
[2024-11-14 13:40] LABS: CO2 26 mmol/L (21-32)
[2024-11-14 13:42] LABS: ALK PHOS 135 U/L (40-150)
[2024-11-14 13:44] LABS: SGOT/AST 23 U/L (5-34); SGPT/ALT 20 U/L (0-55)
[2024-11-14 13:45] LABS: CREATININE 1.06 mg/dL (0.55-1.3)
[2024-11-14] MEDS: TIMOLOL 0.5% OPHTHALMIC SOL 5 ML BOTTLE OU SCH (17:27)
[2024-11-14] MEDS: TAMSULOSIN HCL 0.4 MG CAP PO SCH (22:19)
[2024-11-14] MEDS: MIRTAZAPINE 15 MG TABLET (FP) PO SCH (22:20)
[2024-11-14] MEDS: LATANOPROST 0.005% OPHTH SOLN 2.5ML BOTTLE OU SCH (22:31)
[2024-11-15] MEDS: NALTREXONE HCL 50 MG TABLET PO SCH (10:09)
[2024-11-15] MEDS: GABAPENTIN 300 MG CAPSULE PO PRN (10:10)
[2024-11-16] MEDS: TIMOLOL 0.5% OPHTHALMIC SOL 5 ML BOTTLE OU SCH (11:00)
[2024-11-16] MEDS: DORZOLAMIDE 2% HCL OPHTHALMIC SOLUTION 10 ML BOTTLE OU SCH (14:30)
[2024-11-16] MEDS: MAG HYDROX/AL HYDROX/SIMETH 30 ML UNIT-DOSE CUP PO PRN (21:06)
[2024-11-17] MEDS: METHOCARBAMOL 500 MG TABLET PO PRN (22:16)
[2024-11-18 08:56] VITALS: RESP 17
[2024-11-18 12:43] VITALS: BP 130/77; PULSE 72; TEMP 97.7
== END 2024-11-18 13:13 | disposition other institution (70) | DRG 774 ==
LOC: YASAS 18:04 → Y6N 11-14 02:08
PROVIDERS: ADMIT Allergy & Immunology; ATTEND Counselor Addiction (Substance Use Disorder)
PROC: HZ2ZZZZ Detoxification Services for Substance Abuse Treatment (ICD-10-PCS; principal; 2024-11-14)
DX: F10.230 Alcohol dependence with withdrawal, uncomplicated (principal); F14.20 Cocaine dependence, uncomplicated; F32.A Depression, unspecified; F41.9 Anxiety disorder, unspecified; H40.10X0 Unspecified open-angle glaucoma, stage unspecified; Z86.11 Personal history of tuberculosis; Z87.891 Personal history of nicotine dependence
CPT/HCPCS: 36415; 80053; 80307; 85027; 86780; 93005; 93010